=== PATIENT | female | born 1940 | race Caucasian/White ===

== ENCOUNTER 2016-08-24 11:15 | Observation (INO) ==
--- NOTE | 2016-08-24 11:49 | EKG Report ---
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
[2016-08-24] MEDS ORDERED: ENOXAPARIN 60 MG/0.6 ML SYRINGE SUBCUT STA (11:57)
[2016-08-24] MEDS ORDERED: ASPIRIN 325 MG TABLET PO STA ×2 (11:57→11:59)
[2016-08-24] MEDS ORDERED: ALUM/MAG/SIMETH/LIDO VISC 1:1 30 ML BOTTLE PO STA (11:57)
[2016-08-24] MEDS ORDERED: ENOXAPARIN 60 MG/0.6 ML SYRINGE ONE (12:00)
[2016-08-24] MEDS ORDERED: ASPIRIN 325 MG TABLET ONE (12:00)
[2016-08-24] MEDS ORDERED: ALUM/MAG/SIMETH/LIDO VISC 1:1 30 ML BOTTLE PO ONE (12:00)
[2016-08-24 12:17] LABS: Basophils % 1.5 % (0.0-0.8); Eosinophils % 0.4 % (0.00-10.9); Hematocrit 33.2 VOL% (35.7-47.0); Hemoglobin 11.5 GM/DL (12.0-16.0); Immature Granulocytes % 0.4 %; Immature Granulocytes Absolute 0.01 #; Lymphocytes # 0.8 10*3/uL (1.4-4.0); Lymphocytes % 31.6 % (21.3-54.2); Mean Corpuscular HGB Conc 34.6 GM/DL (32-36); Mean Corpuscular Hemoglobin 29 PG (27-34); Mean Corpuscular Volume 84.1 FL (87-102); Mean Platelet Volume 9.6 FL (9.6-12.0); Monocytes # 0.4 10*3/uL (0.11-0.8); Monocytes % 15.6 % (1.7-12.7); Neutrophils # 1.3 10*3/uL (1.4-7.4); Neutrophils % 50.5 % (38.7-73.9); Platelet Count 230 T/CUMM (130-400); Red Blood Count 3.95 MC/CUMM (3.8-5.5); Red Cell Distribution Width 16.5 % (9.3-17.3); White Blood Count 2.6 T/CUMM (4-12)
--- NOTE | 2016-08-24 12:29 | XRay Report ---
XR chest 2V Indication: Chest pain. Chest 2 views: Comparison 08/19/2015. Mediport catheter, tortuous calcified atheromatous disease of the aorta, median sternotomy wires, normal heart size and postoperative changes left mastectomy and axillary dissection noted. Multiple embolization coils are now present in the upper abdomen. No new infiltrates shown. Pleural spaces are clear. Osteopenia and degenerative changes thoracic spine are mild. Impression: No acute cardiopulmonary disease. Multiple chronic findings described above. PROCEDURE INTERPRETED AT [facility] DEPARTMENT OF RADIOLOGY Final Report Signed by: Harry Gallego M.D.
--- NOTE | 2016-08-24 12:36 | Emergency Department Note ---
IReza Meredith, am scribing for, and in the presence of, Fernandez Mejias MD 11: 59. IMagalie James D, MD, personally performed the services described in this documentation, ascribed by Lindsay Cobb in my presence, and it is both accurate and complete 234 . Arrival - Arrival Chief Complaint: Chest Pain Stated Complaint: hurting in chest and back ED Nursing Triage Note: Pt was sent over from [facility] office for c/o chest pain onset last night - pt is currently taking radiation for cancerous area to esophagus. Pt states that she did not get her radaition today was sent to ER for evaluation Mode of Arrival: Ambulatory Limitations: No Limitations Source: Patient, Old Records Reviewed, RN Notes Reviewed Time Seen by Provider: 08/24/16 11:53 - History of Present Illness HPI Narrative: Pt is a 75 y/o white female sent to the ED from Dr. Schafer's office with c/o chest pain which radiates into the back, onset last night. She thinks this is related to indigestion because she has had increased belching. Pt denies any nausea, vomiting, diaphoresis, or pain radiating down the arms. She is currently being treated for cancerous area of the esophagus. Pt did not get radiation today. She has a history of CAD, HTN, DVT, colon cancer, liver cancer , and breast cancer. Onset (ago): hour(s) Date of Last Menstrual Period: hyster Allergies/Adverse Reactions: Allergies Allergy/AdvReac Type Severity Reaction Status Date / Time No Known Allergies Allergy Verified 09/15/15 07:34 Home Medications: Home Medications Medication Instructions Recorded Confirmed Type hydroCHLOROthiazide 25 mg PO BEDTIME 12/08/15 08/24/16 History [Hydrochlorothiazide] Aspirin EC Tab 81 mg PO QPM 08/24/16 08/24/16 History Metoprolol Succinate Xl [Toprol Xl] 25 mg PO QPM 08/24/16 08/24/16 History Palbociclib [Ibrance] 125 mg PO QAM 08/24/16 08/24/16 History Valsartan 320 mg PO QPM 08/24/16 08/24/16 History amLODIPine [Norvasc] 5 mg PO QPM 08/24/16 08/24/16 History Review of System - Review of System 12 point system: reviewed and no additional remarkable complaints except as stated - Review of System Constitutional: Present: as per HPI. Absent: diaphoresis Cardiovascular: Present: as per HPI, chest pain Gastrointestinal: Present: as per HPI, other (increased belching). Absent: nausea, vomiting Musculoskeletal: Present: as per HPI. Absent: arm pain Medical,Surgical,& Family Hx - Medical History Cardio: History of: CAD, Hypertension, Cardiovascular Problems (DVT 11/2010) Neurology: No history of: Seizures HEENT: History of: Eye Problem (Glasses), Dental Problems Respiratory: Comment Only: Respiratory Problems (Flu Vac Apr 2015; No Pneum Vac) Gastrointestinal: History of: Liver Problems (Liver Mass 08/19/15 Liver Bx Confirmed Breast CA Mets Rt Lobe Liver), Gastrointestinal Cancer (Colon,Liver 2015;12/31/15 Sched for Radioembolization Liver Tumor), GI Problems (09/15/15 Sched for Chemo Embolization Rad Dr. Desai) Reproductive: History of: Breast Cancer (x2 07/2010 & 12/2012; Dr. Payan; Compleded 4 cycles of CMF 05/18/15) Other: History of: Cancer (Breast x2, Colon, Liver) No history of: Anesthesia Reactions - Surgical History Cardiac Surgeries: Sugical HX of: Cardiac Surgery (Open Heart Surgery at [facility]), Vascular Access Devices (Mediport) Abdominal Surgeries: Surgical HX of: Abdominal Surgery (Colectomy), Colonoscopy Reproductive Surgeries: Surgical HX of;: Breast Surgery (Lt MRM 02/2010; Rt Mastectom 02/06/14), Gynecologic Surgery, Hysterectomy Orthopedic Surgeries: Surgical HX of;: Implanted Devices (Mediport) - Family History Family History: Denies;: Additional Family History - Social History Smoking Status: Never smoker Frequency of Alcohol Use: None Type of Drug Use: None Exam Physical Examination: GENERAL: This is a well-nourished, well-developed white female in no apparent distress. VITAL SIGNS: Temperature: 98.1, Pulse: 87, Respirations: 20, Blood pressure: 164 /79, O2 Saturation: 99 HEENT: Head is normocephalic and atraumatic. Pupils are equally round and reactive to light. Extraocular movement are intact. Oropharynx is benign with moist mucous membranes. NECK: Neck is soft and supple without tenderness. There are no masses. There is no lymphadenopathy. LUNGS: Lungs are clear to auscultation bilaterally. Chest rises symmetrically. There is no chest wall tenderness. CV: Heart is regular rate and rhythm without murmurs, rubs, or gallops. ABDOMEN: Abdomen is soft, non-tender to palpation. There are no abnormal masses palpated. There is no organomegaly. Bowel sounds are present and active. SKIN: Skin is warm and dry. No rash. EXTREMITIES: Patient has full range of motion without tenderness. There is no pedal edema. NEUROLOGIC: Awake, alert, and oriented x4. Cranial nerves II through XII are grossly intact. There are no motorsensory deficits. PSYCHIATRIC: Normal affect. Normal mood. Vital Signs: Vital Signs Temperature 98.1 F 08/24/16 11:45 Pulse Rate 76 08/24/16 12:15 Respiratory Rate 24 08/24/16 12:15 Blood Pressure 183/70 08/24/16 12:15 O2 Sat by Pulse Oximetry 100 08/24/16 12:15 Course - Consultations Consultation #1: Discussed with Dr. Payan. Patient will be admitted to his service. Time: 13:07 Results - Labs CBC & BMP: 08/24/16 11:50 08/24/16 11:50 Lab Results: I have reviewed the patients labs Labs: Laboratory Tests 08/24/16 08/24/16 08/24/16 11:50 11:50 11:50 WBC 2.6 L RBC 3.95 Hgb 11.5 L Hct 33.2 L MCV 84.1 L Plt Count 230 Cochran % (Auto) 15.6 H Baso % (Auto) 1.5 H Neut # (Auto) 1.3 L Lymph # (Auto) 0.8 L Sodium 145 Potassium 3.9 Chloride 108 H Carbon Dioxide 26 BUN 13 Creatinine 0.80 Alkaline Phosphatase 41 L Troponin I < 0.015 - EKG EKG results: interpreted by ERMD - Impressions EKG: Normal sinus rhythm with a rate of 80, incomplete right bundle branch block , nonspecific ST-T wave changes. - Diagnostic Findings Procedure: Chest x-ray: report reviewed by me (No acute cardiopulmonary disease. Multiple chronic findings described above. ) Disposition Clinical Impression: Chest pain, Lung cancer, Coronary artery disease Case discussed with: patient Disposition: Still a Patient Condition: Stable Time of Disposition: 13:06
[2016-08-24 12:53] LABS: Albumin 3.8 G/DL (3.4-5.0); Bilirubin,Total 0.4 MG/DL (0.2-1.0); Calcium 8.9 MG/DL (8.5-10.1); Eosinophils 2 % (0-10); Hypochromasia 1+; Lymphocytes 28 % (20-55); Magnesium 2.1 MG/DL (1.8-2.4); Osmolality,Calculated 287.7 MOS/KG (273-304); Potassium 3.9 MMOL/L (3.5-5.1); Segmented Neutrophils 60 % (50-85); Total Cells Counted 100; Total Protein 6.6 G/DL (6.4-8.3)
[2016-08-24 12:54] LABS: Microcytosis 1+; Ovalocytes Few; Platelet Estimate Adequate
[2016-08-24] MEDS ORDERED: diphenhydrAMINE CAP 25 MG CAPSULE PO PRN (14:19)
[2016-08-24] MEDS ORDERED: LACTULOSE 20 GM/30 ML UDCUP PO PRN (14:19)
[2016-08-24] MEDS ORDERED: ALUMINUM/MAGNES/SIMETH MAX STR 30 ML UDCUP PO PRN (14:19)
[2016-08-24] MEDS ORDERED: traMADol 50 MG TABLET PO PRN (14:19)
[2016-08-24] MEDS ORDERED: ACETAMINOPHEN 325 MG TABLET PO PRN (14:19)
[2016-08-24] MEDS ORDERED: TEMAZEPAM 7.5 MG CAPSULE PO PRN (14:19)
[2016-08-24] MEDS ORDERED: MYLANTA/LIDO VISC 2:1 300 ML BOTTLE SWISH/SPIT PRN (14:19)
[2016-08-24] MEDS ORDERED: ONDANSETRON 4 MG/2 ML VIAL IV PRN (14:19)
[2016-08-24] MEDS ORDERED: chlorproMAZINE 25 MG TABLET PO PRN (14:19)
[2016-08-24] MEDS ORDERED: MAGNESIUM HYDROXIDE SUSP 30 ML UDCUP PO PRN (14:19)
[2016-08-24] MEDS ORDERED: guaiFENesin 200 MG/10 ML UDCUP PO PRN (14:19)
[2016-08-24] MEDS ORDERED: ALPRAZolam 0.25 MG TABLET PO PRN (14:19)
[2016-08-24] MEDS ORDERED: PROMETHAZINE INJ 25 MG in SODIUM CHLORIDE 0.9% 50 ML IV PRN (14:19)
[2016-08-24] MEDS ORDERED: BENZTROPINE 2 MG/2 ML AMP IV PRN (14:19)
[2016-08-24] MEDS ORDERED: MYLANTA/LIDO VISC 2:1 300 ML BOTTLE SWISH/SWAL PRN (14:19)
[2016-08-24] MEDS ORDERED: chlorproMAZINE INJ 25 MG in SODIUM CHLORIDE 0.9% 100 ML IV PRN (14:19)
[2016-08-24] MEDS ORDERED: chlorproMAZINE INJ 50 MG in SODIUM CHLORIDE 0.9% 100 ML IV PRN (14:19)
[2016-08-24] MEDS ORDERED: LOPERAMIDE 2 MG CAPSULE PO PRN ×2 (14:19)
[2016-08-24] MEDS ORDERED: ENOXAPARIN 40 MG/0.4 ML SYRINGE SUBCUT SCH (14:19)
[2016-08-24] MEDS: HEPARIN LOCK FLUSH 500 UNIT/5 ML SYRINGE IV SCH (15:00)
--- NOTE | 2016-08-24 15:12 | EKG Report ---
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
[2016-08-24 15:15] LABS: Basophils # 0.1 10*3/uL (0.0-0.2); Basophils % 1.7 % (0.0-0.8); Eosinophils % 0.3 % (0.00-10.9); Hematocrit 33.7 VOL% (35.7-47.0); Hemoglobin 11.3 GM/DL (12.0-16.0); Immature Granulocytes % 0.3 %; Immature Granulocytes Absolute 0.01 #; Lymphocytes # 1.1 10*3/uL (1.4-4.0); Lymphocytes % 39.2 % (21.3-54.2); Mean Corpuscular HGB Conc 33.5 GM/DL (32-36); Mean Corpuscular Hemoglobin 29 PG (27-34); Mean Corpuscular Volume 85.3 FL (87-102); Mean Platelet Volume 9.7 FL (9.6-12.0); Monocytes # 0.3 10*3/uL (0.11-0.8); Monocytes % 11.3 % (1.7-12.7); Neutrophils # 1.4 10*3/uL (1.4-7.4); Neutrophils % 47.2 % (38.7-73.9); Platelet Count 209 T/CUMM (130-400); Red Blood Count 3.95 MC/CUMM (3.8-5.5); Red Cell Distribution Width 16.5 % (9.3-17.3); White Blood Count 2.9 T/CUMM (4-12)
[2016-08-24 15:59] LABS: Albumin 3.6 G/DL (3.4-5.0); Bilirubin,Total 0.4 MG/DL (0.2-1.0); Calcium 8.5 MG/DL (8.5-10.1); Magnesium 2.1 MG/DL (1.8-2.4); Potassium 3.7 MMOL/L (3.5-5.1); Total Protein 6.5 G/DL (6.4-8.3); Uric Acid 5.3 MG/DL (2.6-6.0)
[2016-08-24 18:00] LABS: Lymphocytes 36 % (20-55); Platelet Estimate Normal; Segmented Neutrophils 61 % (50-85); Total Cells Counted 100
[2016-08-24 18:30] LABS: Apearance,Urine CLEAR (Clear); Bacteria,Urine Occasional /HPF (Few); Bilirubin,Urine Negative (Negative); Blood, Urine Negative (Negative); Glucose,Urine (UA) Negative (Negative); Ketones,Urine Negative (Negative); Nitrite,Urine Negative (Negative); Protein,Urine Negative; RBC,Urine <1 /HPF (0-4); Squamous Epithelial Cell,Urine Occasional /HPF (0-10); Urine Color Straw (Yellow); Urine Specific Gravity 1.008 (1.001-1.035); Urine Urobilinogen < 2.0 EU/DL (0.2-1.0); WBC,Urine 1 /HPF (0-6)
[2016-08-25] MEDS: HEPARIN LOCK FLUSH 500 UNIT/5 ML SYRINGE IV SCH ×2 (05:02→15:55)
--- NOTE | 2016-08-25 08:41 | Oncology History&Physical ---
Assessment and Plan (1) Substernal precordial chest pain Status: Acute Assessment and plan: Her troponins have been negative 3 now. From my standpoint we can discharge her home, but I would like cardiology to see her first to see if they would like to do any type of further evaluation while she is in the hospital. If they do not want any type of further evaluation, we will discharge her home later today. She needs to follow-up with radiation next week. She will keep her follow-up appointment with me in clinic in 2 weeks. Current Visit: No (2) History of coronary artery bypass graft x 3 Status: Acute Current Visit: No (3) Breast cancer metastasized to liver Problem details: chronic, recurrent with treatment including TACE in August 2015 and TARE completed 12/31/15 Status: Acute Current Visit: No (4) Coronary artery disease Status: Acute Current Visit: Yes History of Present Illness History of present illness: Ms. Alejandro is a 75 year old female with metastatic breast cancer involving her liver and lymph nodes of her chest. She has a history of coronary artery disease and underwent a CABG a few years ago. Her most recent cardiac history was after yttrium-90 treatment to her liver a few months ago. Shortly after the procedure she developed chest pain and had some questionable EKG changes. Dr. Schumacher with cardiology evaluated her and felt like the chest pain was atypical and more related to her procedure. Her troponins never increased at that time that I can recall. She presented to the ER yesterday complaining of left-sided chest pain that radiated to her arm. I started the night before. She denies any shortness of breath or back pain with the pain. She is currently receiving radiation to 2 separate cancer spots in her chest. I am managing her with oral chemotherapy and antiestrogen injections. She is admitted to my service for rule out of myocardial infarction and cardiology evaluation. Unfortunately, the ER did not place a consult to cardiology yesterday so she has yet to be seen by them. I have asked them to see her today. Home Medications Medication Instructions Recorded Confirmed Type hydroCHLOROthiazide 25 mg PO BEDTIME 12/08/15 08/24/16 History [Hydrochlorothiazide] Aspirin EC Tab 81 mg PO QPM 08/24/16 08/24/16 History Metoprolol Succinate Xl [Toprol Xl] 25 mg PO QPM 08/24/16 08/24/16 History Palbociclib [Ibrance] 125 mg PO QAM 08/24/16 08/24/16 History Valsartan 320 mg PO QPM 08/24/16 08/24/16 History amLODIPine [Norvasc] 5 mg PO QPM 08/24/16 08/24/16 History Allergies Allergy/AdvReac Type Severity Reaction Status Date / Time No Known Allergies Allergy Verified 09/15/15 07:34 Medical,Surgical,& Family Hx - Medical History Cardio: History of: CAD, Hypertension, Cardiovascular Problems (DVT 11/2010) Neurology: History of: Cerebrovascular Accident (2015) No history of: Seizures HEENT: History of: Eye Problem (Glasses), Dental Problems Respiratory: Comment Only: Respiratory Problems (Flu Vac Apr 2015; No Pneum Vac) Gastrointestinal: History of: Liver Problems (Liver Mass 08/19/15 Liver Bx Confirmed Breast CA Mets Rt Lobe Liver), Gastrointestinal Cancer (Colon,Liver 2015;12/31/15 Sched for Radioembolization Liver Tumor), GI Problems (09/15/15 Sched for Chemo Embolization Rad Dr. Desai) Reproductive: History of: Breast Cancer (x2 07/2010 & 12/2012; Dr. Payan; Compleded 4 cycles of CMF 05/18/15) Other: History of: Cancer (Breast x2, Colon, Liver) No history of: Anesthesia Reactions - Surgical History Cardiac Surgeries: Sugical HX of: Cardiac Surgery (Open Heart Surgery at [facility]), Vascular Access Devices (Mediport) Abdominal Surgeries: Surgical HX of: Abdominal Surgery (Colectomy), Colonoscopy Reproductive Surgeries: Surgical HX of;: Breast Surgery (Lt MRM 02/2010; Rt Mastectom 02/06/14), Gynecologic Surgery, Hysterectomy Orthopedic Surgeries: Surgical HX of;: Implanted Devices (Mediport) - Family History Family History: Reports;: Family Cancer, Family Heart Disease, Family Hypertension Denies;: Additional Family History - Social History Smoking Status: Never smoker Frequency of Alcohol Use: None Type of Drug Use: None 12 point system: reviewed and no additional remarkable complaints except as stated - Cardiovascular Cardiovascular ROS IM: Present: chest pain. Absent: edema, palpitations - Respiratory Respiratory: Absent: cough, dyspnea Exam - Constitutional Vitals: Period Temp Pulse Resp BP Sys/Davis Pulse Ox Last 24 Hr 97.4 F-98 F 71-91 15-20 132-206/63-94 92-100 General appearance: normal weight, no acute distress - Head Head Exam: Present: normocephalic, atraumatic - Eye Eye Exam: Present: EOMI Pupils: Present: PERRL - ENT ENT exam: Present: normal exam, normal oropharynx - Neck Neck exam: Absent: lymphadenopathy, thyromegaly - Respiratory Respiratory exam: Present: CTAB. Absent: wheezes - Cardiovascular Cardiovascular exam: Present: RRR. Absent: JVD - GI/Abdominal GI/Abdominal exam: Present: soft. Absent: ascites, distended, mass - Neurological Exam Neurological exam: Present: alert, oriented X3 - Psychiatric Psychiatric exam: Present: normal affect, normal mood - Skin Skin exam: Present: warm, dry Results - Labs CBC & BMP: 08/24/16 15:09 08/24/16 15:09 Lab Results: I have reviewed the past 24 hour labs
[2016-08-25] MEDS ORDERED: ENOXAPARIN 40 MG/0.4 ML SYRINGE SUBCUT SCH (09:00)
--- NOTE | 2016-08-25 09:44 | Cardiology Consult Note ---
<Antonia Carmona - Last Filed: 08/25/16 12:34> Assessment and Plan - Time spent with patient Time spent with patient: Greater than 30 minutes (1) Chest pain Status: Acute Assessment and plan: Patient is currently chest pain-free. Troponin has been negative 3. EKG is unchanged from previous EKGs. This does not seem to be cardiac in nature. I have added PPI. After further discussing with Dr. Schumacher, patient is stable for discharge from a cardiology's standpoint. Patient will follow up with Dr. Schumacher in 1 month. Current Visit: Yes (2) Coronary artery disease Status: Chronic Current Visit: Yes (3) Breast cancer metastasized to liver Problem details: chronic, recurrent with treatment including TACE in August 2015 and TARE completed 12/31/15 Status: Chronic Assessment and plan: Followed by Dr. Payan. She is currently receiving radiation treatments for this. Current Visit: No (4) History of coronary artery bypass graft x 3 Status: Chronic Assessment and plan: CABG approximately 10 years ago with vein graft to RCA, vein graft to circumflex and HUNTER graft to LAD. All 3 grafts were patent without evidence of significant flow-limiting stenosis during patient's most recent heart catheterization December 2015. Current Visit: No (5) Non-ST elevation myocardial infarction (NSTEMI) Status: Resolved Assessment and plan: Patient had a heart catheterization by Dr. Schumacher December 2015 after presenting with non-ST elevation RI after having interventional radiology procedure. At that time, 3 out of 3 grafts were patent without evidence of significant flow- limiting stenosis with some collateralization from the distal right to the septal perforators of the proximal LAD. She had normal left ventricular size and function. At that time, she was treated medically. Current Visit: No (6) Hypertension Status: Chronic Current Visit: Yes History of Present Illness - Data of Consult Patient: known to practice within the last 3 years Consult date: 08/25/16 Requesting Physician: Rodney Payan - Consult Narrative Reason for consult: chest pain History of present illness: Ms. Alejandro is a 75 year old female patient with with a previous history coronary artery disease, routinely followed by Dr. Schumacher. Her primary care provider is Dr. Schafer. Patient presented to the ER yesterday with complaints of chest pain. Patient has cardiac risk factors significant for known history of CAD, hypertension, advanced age and family history of CAD ( mother from [place] at age 85). Patient is a non-smoker. She has a past medical history of metastatic breast cancer involving her liver and lymph nodes (she is currently receiving radiation at this time), non-ST elevation RI, CABG with vein graft to RCA, vein graft to circumflex and HUNTER graft to LAD, malignant neoplasm of colon, and ascending aortic dissection. Patient had a heart catheterization by Dr. Schumacher December 2015 after presenting with non-ST elevation RI after having interventional radiology procedure. At that time, 3 out of 3 grafts were patent without evidence of significant flow-limiting stenosis with some collateralization from the distal right to the septal perforators of the proximal LAD. She had normal left ventricular size and function. At that time, she was treated medically. She last saw Dr. Schumacher in the office over the 2016. Patient was in her usual state of health until Sunday night when she began to experience left-sided chest pain while watching TV. She describes this pain as a sharp pain that radiates to her back. Patient rates her pain a 6 out of 10. Her pain was not associated with nausea, vomiting, shortness of breath or diaphoresis. Unable to identify aggravating factors. Her pain was not worsened with exertion or activity. She does tell me that her chest pain was made slightly better after belching. Unrelieved with Rolaids. She reports dysphagia was associated with her chest pain. Her pain then went away on its own. She never took a nitroglycerin. Her chest pain lasted approximately 3 hours. When she woke up the next morning she was no longer experiencing chest pain. She had an appointment already scheduled with Dr. Schafer that day. She reported her symptoms to Dr. Schafer during her visit. At that time, he recommended that she reports to the ER for further evaluation. Patient was admitted under Dr. Payan's service and housed on the telemetry floor. Cardiology has been consulted to further evaluate patient's chest pain. Of note, patient denies fever, chills, cough, abdominal pain, nausea, vomiting, diarrhea, melena, orthopnea, PND and lower extremity swelling. She also denies dyspnea on exertion and/or worsening exercise intolerance. Echocardiogram December 2015 revealed an ejection fraction of 60%. Mild MR, aortic sclerosis and moderate to severe TR. Normal LV size, systolic wall function and wall thickness. She was seen and examined on telemetry. She is currently chest pain free. She reports that she has not experienced any further chest pain since being admitted to the hospital yesterday. Her troponins have been negative 3. EKG reveals ST segment and T-wave abnormality. This is unchanged from previous EKG. Pain is not reproducible with palpation. I will add a PPI at this time and will discuss this further with Dr. Schumacher. Further plan and addendum to follow. CC: Rodney Payan MD - Home Medications and Allergies Home Medications: Home Medications Medication Instructions Recorded Confirmed Type hydroCHLOROthiazide 25 mg PO BEDTIME 12/08/15 08/24/16 History [Hydrochlorothiazide] Aspirin EC Tab 81 mg PO QPM 08/24/16 08/24/16 History Metoprolol Succinate Xl [Toprol Xl] 25 mg PO QPM 08/24/16 08/24/16 History Palbociclib [Ibrance] 125 mg PO QAM 08/24/16 08/24/16 History Valsartan 320 mg PO QPM 08/24/16 08/24/16 History amLODIPine [Norvasc] 5 mg PO QPM 08/24/16 08/24/16 History Allergies/Adverse Reactions: Allergies Allergy/AdvReac Type Severity Reaction Status Date / Time No Known Allergies Allergy Verified 09/15/15 07:34 - Constitutional Constitutional: Absent: chills, fatigue, fever(s), frequent falls, headache(s), malaise, weakness, weight gain, weight loss - Cardiovascular Cardiovascular: Present: chest pain at rest, radiating jaw, neck or arm pain. Absent: chest pain with activity, claudication, diaphoresis, dyspnea, dyspnea on exertion, edema, lightheadedness, orthopnea, palpitations, PND - Respiratory Respiratory: Present: pain on inspiration. Absent: cough, dyspnea, hemoptysis, dyspnea on exertion, wheezing, snoring, change in phlegm color - Gastrointestinal Gastrointestinal: Present: dysphagia, other (Belching). Absent: abdominal pain , change in bowel habits, coffee ground emesis, constipation, cramping, diarrhea , hematemesis, hematochezia, loose stools, melena, nausea, vomiting - Neurological Neurological: Absent: abnormal gait, abnormal speech, behavioral changes, dizziness, frequent falls, headache(s), syncope Medical,Surgical,& Family Hx - Medical History Cardio: History of: CAD, Hypertension, RI, Cardiovascular Problems (previous history of DVT in 2010) Neurology: History of: Cerebrovascular Accident (2015) No history of: Seizures HEENT: History of: Eye Problem (Glasses), Dental Problems Respiratory: Comment Only: Respiratory Problems (Flu Vac Apr 2015; No Pneum Vac) Gastrointestinal: History of: Liver Problems (Liver Mass 08/19/15 Liver Bx Confirmed Breast CA Mets Rt Lobe Liver), Gastrointestinal Cancer (Colon,Liver 2015;12/31/15 Sched for Radioembolization Liver Tumor), GI Problems (09/15/15 Sched for Chemo Embolization Rad Dr. Desai) Reproductive: History of: Breast Cancer (x2 07/2010 & 12/2012; Dr. Payan; Compleded 4 cycles of CMF 05/18/15) Other: History of: Cancer (Breast x2, Colon, Liver) No history of: Anesthesia Reactions - Surgical History Cardiac Surgeries: Sugical HX of: Cardiac Catheterization, Cardiac Surgery (CABG ), Vascular Access Devices (Mediport) Abdominal Surgeries: Surgical HX of: Abdominal Surgery (Colectomy), Colonoscopy Reproductive Surgeries: Surgical HX of;: Breast Surgery (Lt MRM 02/2010; Rt Mastectom 02/06/14), Gynecologic Surgery, Hysterectomy Orthopedic Surgeries: Surgical HX of;: Implanted Devices (Mediport) - Family History Family History: Reports;: Family Cancer, Family Heart Disease, Family Hypertension Denies;: Additional Family History - Social History Smoking Status: Never smoker Frequency of Alcohol Use: None Type of Drug Use: None Physical Examination Vital Signs Temp Pulse Resp BP Pulse Ox 98.1 F 87 20 164/79 99 08/24/16 11:27 08/24/16 11:27 08/24/16 11:27 08/24/16 11:27 08/24/16 11:27 General: Present: Appears Well, No Apparent Distress HEENT: Present: Normocephaly Neck: Present: Supple Neck, Midline Trachea, No JVD/HJR, No Masses, No Bruit Cardiac: Present: Reg Rate and Rhythm, Regular Rate, Regular Rhythm, S1/S2, Systolic Murmur. Absent: Gallop Lungs: Present: Normal Exam, Clear Ascult./Percussion, Normal Breath Sounds, No Wheeze, Rales, Rhonchi. Absent: Oxygen Abdomen: Present: Soft, Active Bowel Sounds, Non-Tender Skin: Present: Clear. Absent: Rash, Suspicious Lesions, Ulceration Gait: Present: Normal Gait Extremities: Present: Normal Gait, No Clubbing, No Cyanosis, No Edema, Normal Upper Extr. Pulses, Normal Lower Extr. Pulses Result/EKG - Labs CBC & BMP: 08/24/16 15:09 08/24/16 15:09 Lab Results: I have reviewed the past 24 hour labs Labs: Laboratory Results - last 24 hr 08/24/16 08/24/16 08/24/16 15:09 15:09 15:09 WBC 2.9 L RBC 3.95 Hgb 11.3 L Hct 33.7 L MCV 85.3 L MCH 29 MCHC 33.5 RDW 16.5 Plt Count 209 MPV 9.7 Neut % (Auto) 47.2 Lymph % (Auto) 39.2 [place] % (Auto) 11.3 Eos % (Auto) 0.3 Baso % (Auto) 1.7 H Neut # (Auto) 1.4 Lymph # (Auto) 1.1 L [place] # (Auto) 0.3 Eos # (Auto) 0.0 Baso # (Auto) 0.1 Total Counted 100 Immature Gran % 0.3 Nucleated RBC % 0.0 Immature Gran # 0.01 Segmented Neutrophils 61 Lymphocytes 36 Monocytes 3 Nucleated RBCs # 0.00 Platelet Estimate Normal Sodium 143 Potassium 3.7 Chloride 105 Carbon Dioxide 29 Anion Gap 12.7 BUN 12 Creatinine 0.70 GFR Calculation 85 BUN/Creatinine Ratio 17.00 Glucose 83 Calculated Osmolality 283.0 Uric Acid 5.3 Calcium 8.5 Magnesium 2.1 Total Bilirubin 0.40 AST 19 ALT 21 Alkaline Phosphatase 41 L Lactate Dehydrogenase 159 Troponin I < 0.015 Total Protein 6.5 Albumin 3.6 Globulin 2.9 Albumin/Globulin Ratio 1.2 Urine Color Urine Appearance Urine pH Ur Specific [place] Urine Protein Urine Glucose (UA) Urine Ketones Urine Blood Urine Nitrate Urine Bilirubin Urine Urobilinogen Urine Leukocytes Urine RBC Urine WBC Ur Squamous Epith Cells Urine Bacteria Ur Culture Indicated? 08/24/16 08/24/16 18:41 Unknown WBC RBC Hgb Hct MCV MCH MCHC RDW Plt Count MPV Neut % (Auto) Lymph % (Auto) [place] % (Auto) Eos % (Auto) Baso % (Auto) Neut # (Auto) Lymph # (Auto) [place] # (Auto) Eos # (Auto) Baso # (Auto) Total Counted Immature Gran % Nucleated RBC % Immature Gran # Segmented Neutrophils Lymphocytes Monocytes Nucleated RBCs # Platelet Estimate Sodium Potassium Chloride Carbon Dioxide Anion Gap BUN Creatinine GFR Calculation BUN/Creatinine Ratio Glucose Calculated Osmolality Uric Acid Calcium Magnesium Total Bilirubin AST ALT Alkaline Phosphatase Lactate Dehydrogenase Troponin I < 0.015 Total Protein Albumin Globulin Albumin/Globulin Ratio Urine Color Straw Urine Appearance Clear Urine pH 7.0 Ur Specific [place] 1.008 Urine Protein Negative Urine Glucose (UA) Negative Urine Ketones Negative Urine Blood Negative Urine Nitrate Negative Urine Bilirubin Negative Urine Urobilinogen < 2.0 H Urine Leukocytes Negative Urine RBC <1 Urine WBC 1 Ur Squamous Epith Cells Occasional Urine Bacteria Occasional Ur Culture Indicated? Not indicated Specialty Discharge - Follow Up or Referrals Follow up with: Leopoldo Schumacher MD [Physician] - 1 Month (Please make appointment with Dr. Schumacher in 1 month with EKG, CBC, BMP and magnesium.) <Leopoldo Schumacher - Last Filed: 08/25/16 13:23> History of Present Illness - Consult Narrative History of present illness: Ms. Alejandro is a 75 year old female who is well known to me. She had catheterization about 9 months ago when she presented with a non-ST elevation myocardial infarction. This occurred around the time that she had embolization of a liver tumor and I think they were in some way related as there was inflammation which I think was the etiology of her elevated troponin. She did not have significant occlusive coronary disease approachable by PCI and has been stable since discharge. She is now presented with chest discomfort which is atypical and noncardiac by my history she has negative enzymes and EKGs and I think is reasonable for her to be discharged home. I will see her in follow- up in 1 month. She does have a murmur consistent with aortic stenosis noted. I have discussed in detail the particulars of this case and I have examined the patient and reviewed the patient's chart both current and old. I was directly involved in the patient's evaluation and management and I completely agree with Antonia Carmona NP regarding this patient's evaluation and treatment plan. CC: Rodney Payan MD Physical Examination Vital Signs Temp Pulse Resp BP Pulse Ox 98.1 F 87 20 164/79 99 08/24/16 11:27 08/24/16 11:27 08/24/16 11:27 08/24/16 11:27 08/24/16 11:27 Result/EKG - Labs CBC & BMP: 08/24/16 15:09 08/24/16 15:09 Labs: Laboratory Results - last 24 hr 08/24/16 08/24/16 08/24/16 15:09 15:09 15:09 WBC 2.9 L RBC 3.95 Hgb 11.3 L Hct 33.7 L MCV 85.3 L MCH 29 MCHC 33.5 RDW 16.5 Plt Count 209 MPV 9.7 Neut % (Auto) 47.2 Lymph % (Auto) 39.2 [place] % (Auto) 11.3 Eos % (Auto) 0.3 Baso % (Auto) 1.7 H Neut # (Auto) 1.4 Lymph # (Auto) 1.1 L [place] # (Auto) 0.3 Eos # (Auto) 0.0 Baso # (Auto) 0.1 Total Counted 100 Immature Gran % 0.3 Nucleated RBC % 0.0 Immature Gran # 0.01 Segmented Neutrophils 61 Lymphocytes 36 Monocytes 3 Nucleated RBCs # 0.00 Platelet Estimate Normal Sodium 143 Potassium 3.7 Chloride 105 Carbon Dioxide 29 Anion Gap 12.7 BUN 12 Creatinine 0.70 GFR Calculation 85 BUN/Creatinine Ratio 17.00 Glucose 83 Calculated Osmolality 283.0 Uric Acid 5.3 Calcium 8.5 Magnesium 2.1 Total Bilirubin 0.40 AST 19 ALT 21 Alkaline Phosphatase 41 L Lactate Dehydrogenase 159 Troponin I < 0.015 Total Protein 6.5 Albumin 3.6 Globulin 2.9 Albumin/Globulin Ratio 1.2 Urine Color Urine Appearance Urine pH Ur Specific [place] Urine Protein Urine Glucose (UA) Urine Ketones Urine Blood Urine Nitrate Urine Bilirubin Urine Urobilinogen Urine Leukocytes Urine RBC Urine WBC Ur Squamous Epith Cells Urine Bacteria Ur Culture Indicated? 08/24/16 08/24/16 18:41 Unknown WBC RBC Hgb Hct MCV MCH MCHC RDW Plt Count MPV Neut % (Auto) Lymph % (Auto) [place] % (Auto) Eos % (Auto) Baso % (Auto) Neut # (Auto) Lymph # (Auto) [place] # (Auto) Eos # (Auto) Baso # (Auto) Total Counted Immature Gran % Nucleated RBC % Immature Gran # Segmented Neutrophils Lymphocytes Monocytes Nucleated RBCs # Platelet Estimate Sodium Potassium Chloride Carbon Dioxide Anion Gap BUN Creatinine GFR Calculation BUN/Creatinine Ratio Glucose Calculated Osmolality Uric Acid Calcium Magnesium Total Bilirubin AST ALT Alkaline Phosphatase Lactate Dehydrogenase Troponin I < 0.015 Total Protein Albumin Globulin Albumin/Globulin Ratio Urine Color Straw Urine Appearance Clear Urine pH 7.0 Ur Specific [place] 1.008 Urine Protein Negative Urine Glucose (UA) Negative Urine Ketones Negative Urine Blood Negative Urine Nitrate Negative Urine Bilirubin Negative Urine Urobilinogen < 2.0 H Urine Leukocytes Negative Urine RBC <1 Urine WBC 1 Ur Squamous Epith Cells Occasional Urine Bacteria Occasional Ur Culture Indicated? Not indicated
--- NOTE | 2016-08-25 11:12 | Ultrasound Report ---
Indication: Chest pain Duplex scan of the bilateral lower extremity veins Technique: Duplex scan of the bilateral lower extremity veins using B-mode/grayscale imaging and Doppler spectral analysis and color flow Findings: Major venous structures of the bilateral lower extremity demonstrate a normal course and caliber. There is no evidence of deep vein thrombosis. No abnormal intrinsic echogenic lesions are demonstrated in the scanned blood vessels. Veins demonstrate good compressibility with normal color flow study and spectral analysis. Impression: Unremarkable duplex imaging of the bilateral lower extremity veins. No evidence of DVT PROCEDURE INTERPRETED AT [facility] DEPARTMENT OF RADIOLOGY Final Report Signed by: Robert Desai
[2016-08-25] MEDS ORDERED: PANTOPRAZOLE 40 MG TABLET PO SCH (11:30)
[2016-08-25 11:54] VITALS: BP 154/69
--- NOTE | 2016-08-25 13:55 | Discharge Summary ---
Hospital Course - Hospital Course Hospital Course: See H&P done earlier today. Pt admitted with atypical chest pain. Troponins were negative. No plans for catherization or nuclear testing for now. Will d/c home. 1. Follow with Cardiology 2. Keep appts with me and Radiation Oncology Diagnosis - Discharge Diagnosis (1) Substernal precordial chest pain Status: Acute (2) History of coronary artery bypass graft x 3 Status: Chronic (3) Breast cancer metastasized to liver Status: Chronic (4) Coronary artery disease Status: Chronic Specialty Discharge - Follow Up or Referrals Follow up with: Leopoldo Schumacher MD [Physician] - 1 Month (Please make appointment with Dr. Schumacher in 1 month with EKG, CBC, BMP and magnesium.) Discharge Plan - Discharge Data Disposition: Disch To Home/Self Care Condition at Discharge: Stable Discharge Diet: advance to your usual diet Activity: resume usual activities as tolerated Hygiene: no restrictions Weight Bearing at Discharge: full weight bearing Driving: no restrictions - Discharge Medications Continue hydroCHLOROthiazide [Hydrochlorothiazide] 25 mg PO BEDTIME amLODIPine [Norvasc] 5 mg PO QPM Valsartan 320 mg PO QPM Metoprolol Succinate Xl [Toprol Xl] 25 mg PO QPM Palbociclib [Ibrance] 125 mg PO QAM Aspirin EC Tab 81 mg PO QPM - Follow Up or Referral Follow Up: Leopoldo Schumacher MD [Physician] - 1 Month (Please make appointment with Dr. Schumacher in 1 month with EKG, CBC, BMP and magnesium.) - Forms/Instructions Exam - Constitutional Vitals: Period Temp Pulse Resp BP Sys/Davis Pulse Ox Last 24 Hr 97.4 F-98.0 F 71-91 16-20 132-206/63-94 92-98 Discharge Results Procedures and tests throughout hospitalization: Pending Orders 08/25/16 11:31 US venous doppler LE BI Routine Labs on day of discharge: Labs from last 24 hours 08/24/16 08/24/16 08/24/16 Unknown 18:41 15:09 WBC RBC Hgb Hct MCV MCH MCHC RDW Plt Count MPV Neut % (Auto) Lymph % (Auto) [place] % (Auto) Eos % (Auto) Baso % (Auto) Neut # (Auto) Lymph # (Auto) [place] # (Auto) Eos # (Auto) Baso # (Auto) Total Counted Immature Gran % Nucleated RBC % Immature Gran # Segmented Neutrophils Lymphocytes Monocytes Nucleated RBCs # Platelet Estimate Sodium 143 Potassium 3.7 Chloride 105 Carbon Dioxide 29 Anion Gap 12.7 BUN 12 Creatinine 0.70 GFR Calculation 85 BUN/Creatinine Ratio 17.00 Glucose 83 Calculated Osmolality 283.0 Uric Acid 5.3 Calcium 8.5 Magnesium 2.1 Total Bilirubin 0.40 AST 19 ALT 21 Alkaline Phosphatase 41 L Lactate Dehydrogenase 159 Troponin I < 0.015 Total Protein 6.5 Albumin 3.6 Globulin 2.9 Albumin/Globulin Ratio 1.2 Urine Color Straw Urine Appearance Clear Urine pH 7.0 Ur Specific [place] 1.008 Urine Protein Negative Urine Glucose (UA) Negative Urine Ketones Negative Urine Blood Negative Urine Nitrate Negative Urine Bilirubin Negative Urine Urobilinogen < 2.0 H Urine Leukocytes Negative Urine RBC <1 Urine WBC 1 Ur Squamous Epith Cells Occasional Urine Bacteria Occasional Ur Culture Indicated? Not indicated 08/24/16 08/24/16 15:09 15:09 WBC 2.9 L RBC 3.95 Hgb 11.3 L Hct 33.7 L MCV 85.3 L MCH 29 MCHC 33.5 RDW 16.5 Plt Count 209 MPV 9.7 Neut % (Auto) 47.2 Lymph % (Auto) 39.2 [place] % (Auto) 11.3 Eos % (Auto) 0.3 Baso % (Auto) 1.7 H Neut # (Auto) 1.4 Lymph # (Auto) 1.1 L [place] # (Auto) 0.3 Eos # (Auto) 0.0 Baso # (Auto) 0.1 Total Counted 100 Immature Gran % 0.3 Nucleated RBC % 0.0 Immature Gran # 0.01 Segmented Neutrophils 61 Lymphocytes 36 Monocytes 3 Nucleated RBCs # 0.00 Platelet Estimate Normal Sodium Potassium Chloride Carbon Dioxide Anion Gap BUN Creatinine GFR Calculation BUN/Creatinine Ratio Glucose Calculated Osmolality Uric Acid Calcium Magnesium Total Bilirubin AST ALT Alkaline Phosphatase Lactate Dehydrogenase Troponin I < 0.015 Total Protein Albumin Globulin Albumin/Globulin Ratio Urine Color Urine Appearance Urine pH Ur Specific [place] Urine Protein Urine Glucose (UA) Urine Ketones Urine Blood Urine Nitrate Urine Bilirubin Urine Urobilinogen Urine Leukocytes Urine RBC Urine WBC Ur Squamous Epith Cells Urine Bacteria Ur Culture Indicated? DS: Provider Date of admission: 08/24/16 13:11 Primary care physician: Michelle Lynch, Attending physician on admission: Rodney Payan MD Consults: 08/24/16 14:45 Consult to Pharmacy [CONS] Routine Reason for Pharmacy Consult: Adjust Meds Renal Funct 08/25/16 07:47 Consult to Physician [CONS] Routine Comment: [facility]- chest pain Consulting Provider: Cardiology - [facility] Consult to Specialist Group: Cardiology When should Consulting Provider be notified: Now Person Notified: NAOMIE Date Notified: 08/25/16 Time Notified: 07:55 Discharging clinician: Rodney Payan MD
--- NOTE | 2016-08-26 10:53 | EKG Report ---
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
== END 2016-08-25 15:00 | disposition home or self-care (01) ==
LOC: N.EDINP 11:15 → N.ED 11:15 → N.TELEN 14:10
PROVIDERS: ADMIT Specialist; ATTEND Specialist

== ENCOUNTER 2017-01-04 10:00 | Observation (INO) ==
--- NOTE | 2017-01-04 14:11 | Inventional Radiology Consult ---
Assessment and Plan - Time spent with patient Time spent with patient: Less than 30 minutes (1) Hepatic metastasis Problem details: biopsy proven breast cancer met Status: Acute Assessment and plan: plan for microwave ablation of the lesion next week Current Visit: Yes IR Consult - Data of Consult Patient: known to practice within the last 3 years Consult date: 01/04/17 Requesting Physician: Rodney Payan - Consult Narrative Reason for consult: recurrence of liver lesion, biopsy proven metastatic breast cancer History of present illness: Flavia is a 76 year old F well known to the IR service. She was previously treated for her metastatic hepatic lesion with TACE in August 2015 without significant improvement. Then in Dec 2016 she have TARE with Y90 and the lesion has decreased in size and the PET activity was decreased on follow up. The most recent PET however now shows recurrence of activity in the hepatic lesion. The other mediastinal lesion has not recurred following Radiation treatment. The patient has been in good health otherwise since we last talked. She has cardiology follow up with Dr. Schumacher and had a negative cath and NM cardiac scan in the last year as well. The only new medicine is Ibrance. She is here today to discuss any further treatment options for the liver lesion. We discussed repeat TACE but I don't think that will be very beneficial given her anatomy and limited response. Due to her prior Y90 treatment, she is not a candidate to have an additional Y90 treatment. We discussed CT/ultrasound guided Microwave ablation of the residual tumor. This lesion is now smaller since the Y90 treatment. Risks including injury to the diaphragm, bleeding, infection and injury to the liver vessels or bile ducts was discussed. She agreed to proceed. ROS is otherwise negative. - Home Medications and Allergies Home Medications: Home Medications Medication Instructions Recorded Confirmed Type hydroCHLOROthiazide 25 mg PO BEDTIME 12/08/15 08/24/16 History [Hydrochlorothiazide] Aspirin EC Tab 81 mg PO QPM 08/24/16 08/24/16 History Metoprolol Succinate Xl [Toprol Xl] 25 mg PO QPM 08/24/16 08/24/16 History Palbociclib [Ibrance] 125 mg PO QAM 08/24/16 08/24/16 History Valsartan 320 mg PO QPM 08/24/16 08/24/16 History amLODIPine [Norvasc] 5 mg PO QPM 08/24/16 08/24/16 History Allergies/Adverse Reactions: Allergies Allergy/AdvReac Type Severity Reaction Status Date / Time No Known Allergies Allergy Verified 09/15/15 07:34 12 point system: reviewed and no additional remarkable complaints except as stated Medical,Surgical,& Family Hx - Medical History Cardio: History of: CAD, Hypertension, [place], Cardiovascular Problems (previous history of DVT in 2010) Neurology: History of: Cerebrovascular Accident (2015) No history of: Seizures HEENT: History of: Eye Problem (Glasses), Dental Problems Respiratory: Comment Only: Respiratory Problems (Flu Vac Apr 2015; No Pneum Vac) Gastrointestinal: History of: Liver Problems (Liver Mass 08/19/15 Liver Bx Confirmed Breast CA Mets Rt Lobe Liver), Gastrointestinal Cancer (Colon,Liver 2015;12/31/15 Sched for Radioembolization Liver Tumor), GI Problems (09/15/15 Sched for Chemo Embolization Rad Dr. Desai) Reproductive: History of: Breast Cancer (x2 07/2010 & 12/2012; Dr. Payan; Compleded 4 cycles of CMF 05/18/15) Other: History of: Cancer (Breast x2, Colon, Liver) No history of: Anesthesia Reactions - Surgical History Cardiac Surgeries: Sugical HX of: Cardiac Catheterization, Cardiac Surgery (CABG ), Vascular Access Devices (Mediport) Abdominal Surgeries: Surgical HX of: Abdominal Surgery (Colectomy), Colonoscopy Reproductive Surgeries: Surgical HX of;: Breast Surgery (Lt MRM 02/2010; Rt Mastectom 02/06/14), Gynecologic Surgery, Hysterectomy Orthopedic Surgeries: Surgical HX of;: Implanted Devices (Mediport) - Family History Family History: Reports;: Family Cancer, Family Heart Disease, Family Hypertension - Social History Smoking Status: Unknown if ever smoked Frequency of Alcohol Use: Unknown Type of Drug Use: None Exam - Labs Labs: labs drawn at Dr. Payan's office, results are not available yet. - Constitutional Vitals: Period Temp Pulse Resp BP Sys/Davis Pulse Ox Last 24 Hr 77-77 16-16 138-138/54-54 100-100 General appearance: normal weight - Eye Eye exam: Present: EOMI - Respiratory Respiratory exam: Present: clear to auscultation bilaterally - Cardiovascular Cardiovascular exam: Present: regular rate and rhythm - GI/Abdominal GI/Abdominal exam: Present: normal bowel sounds - Neurological Exam Neurological exam: Present: alert, oriented X3 - Psychiatric Psychiatric exam: Present: normal affect, normal mood - Skin Skin exam: Present: normal color, dry
[2017-01-09] MEDS ORDERED: SODIUM CHLORIDE 0.45% 1,000 ML IV SCH (07:20)
[2017-01-09] MEDS ORDERED: fentaNYL 100 MCG/2 ML VIAL IV ONE (08:00)
[2017-01-09] MEDS ORDERED: MIDAZOLAM 2 MG/2 ML VIAL IV ONE (08:00)
[2017-01-09] MEDS ORDERED: DIAZEPAM 5 MG TABLET PO STA (08:02)
--- NOTE | 2017-01-09 08:10 | IR History and Physical Update ---
IR Pre-Procedure - History and Physical H&P was reviewed, the patient examined and there: are no changes in the patients condition since last H&P was completed. Reason for procedure:: metastatic breast cancer to the liver - Dictation Physical: refer to scanned H&P, refer to H&P completed by admitting physician - Physical Exam Vital Signs: Last Vital Signs Pulse 77 01/04/17 13:49 Resp 16 01/04/17 13:49 BP 138/54 01/04/17 13:49 Pulse Ox 100 01/04/17 13:49 Mental Status: alert and oriented Heart: regular rate and rhythm Lung: clear to auscultation Abdomen: within normal limits - Sedation IR anesthesia plan for sedation: moderate ASA Class: II Airway Assessment: Class III: Soft palate, base of uvula visible - Risks Risks: Procedures explained. Risks discussed include, but not limited to, the following:[ bleeding, infection, injury to adjacent structures, pneumothorax, diaphgram injury] All questions answered. The following alternatives were discussed:[ surgery] Risks and benefits discussed with: patient, spouse Consent obtained from: patient, spouse Assessment and Plan - Time spent with patient Time spent with patient: Less than 30 minutes (1) Hepatic metastasis Problem details: biopsy proven breast cancer met Status: Acute Assessment and plan: plan for microwave ablation of the lesion next week
[2017-01-09 08:20] LABS: PT Patient Result 10.7 SECS; Partial Thromboplastin Time 23.1 SECS (0-40)
[2017-01-09] MEDS ORDERED: fentaNYL 100 MCG/2 ML VIAL ONE (08:47)
[2017-01-09] MEDS ORDERED: MIDAZOLAM 2 MG/2 ML VIAL ONE (08:48)
[2017-01-09] MEDS ORDERED: HYDROmorphone 2 MG/1 ML VIAL ONE (09:49)
--- NOTE | 2017-01-09 10:18 | Post Interventional Procedure ---
Pre-op diagnosis: breast cancer with hepatic metastatic disease Post-op diagnosis: same Procedure: CT/ultrasound guided liver tumor ablation Contrast: none Flouroscopy: none Radiologist: Robert Desai Anesthesia: conscious sedation Medications: 1.5 mg IV Versed 100 mcg IV Fentanyl 1 mg IV Dilaudid Total Sedation Time: 40 mins Specimens: none sent Estimated blood loss: none Complications: none Condition: stable Description/Findings: right hepatic lobe known, biopsy proven metastatic breast cancer lesion was targeted with imaging guidance and ablation performed with excellent result see formal dictation for details Assessment and Plan - Time spent with patient Time spent with patient: Less than 30 minutes (1) Hepatic metastasis Problem details: biopsy proven breast cancer met Status: Acute Assessment and plan: plan for microwave ablation of the lesion next week
[2017-01-09] MEDS ORDERED: HYDROmorphone 2 MG/1 ML VIAL IV ONE (10:25)
--- NOTE | 2017-01-09 11:08 | CT Report ---
CT guided tissue ablation, US guided needle placement CT Guided Renal Cryoablation Clinical Information: 76-year-old female with known biopsy-proven metastatic breast carcinoma to the liver. Patient is status post chemotherapy and radio embolization with PET-positive recurrence focally within the right lobe of the liver near the diaphragm. Physician[s]: Dr. Desai Procedure: The patient was advised of the benefits, risks, and alternatives of the procedure and informed consent was obtained. A time out was performed with verification of the patient's name, MRN, site of procedure, and type of procedure to be performed. The patient was positioned in the supine position on the table. The site was prepped and draped in the usual sterile fashion. Moderate conscious sedation was administered throughout the procedure for 45 minutes, during which a separate trained assistant women's rowing coach directly monitored the physiologic status of the patient. A total of 1.5 mg intravenous Versed, 100 mcg intravenous fentanyl and 1 mg intravenous Dilaudid was administered during the procedure and titrated amounts. Please see nursing flow sheets for this administration details. Preliminary CT demonstrates an approximately 3.5 cm mass in the right lobe of the of the liver consistent with the mass seen on prior imaging. The skin and expected tract were anesthestized with lidocaine. A small skin incision was then made. Using CT and ultrasound guidance, a Bidgely microwave ablation probe was advanced into the target lesion. A 10 minute ablation cycle was performed. Intraprocedural ultrasound demonstrates complete coverage of the target lesion. The ablation probe was then removed. Final CT demonstrates no immediate complication. The puncture site was cleansed and a sterile dressing was applied. The patient tolerated the procedure well and was returned to the PRU in stable condition. EBL: < 5 mL. Complications: None. Total number of images for the procedure: 1347 Conclusion: Successful microwave ablation of a biopsy-proven known metastatic lesion to the right lobe of the liver. PROCEDURE INTERPRETED AT [facility] DEPARTMENT OF RADIOLOGY Final Report Signed by: Robert Desai
--- NOTE | 2017-01-09 11:09 | XRay Report ---
Exam: XR chest post procedure Indication: Status post microwave ablation of right lobe of the liver near the diaphragm Comparison study: Prior chest radiograph 08/24/2016 Findings: Postsurgical changes noted with CABG median sternotomy wiring. Right chest Mediport is in stable position. There is no evidence of pneumothorax following microwave ablation procedure. Minimal basilar atelectasis is noted. Impression: No acute findings following recent procedure. No pneumothorax. Minimal basilar atelectasis is noted. PROCEDURE INTERPRETED AT [facility] DEPARTMENT OF RADIOLOGY Final Report Signed by: Robert Desai
[2017-01-09] MEDS ORDERED: ONDANSETRON 4 MG/2 ML VIAL IV PRN (11:31)
[2017-01-09] MEDS ORDERED: PNEUMOCOCCAL VACCINE (13 VALENT) 0.5 ML SYRINGE IM ONE (11:49)
[2017-01-09] MEDS: MORPHINE 2 MG/1 ML SYRINGE IV PRN ×3 (13:42→23:15)
[2017-01-10 08:17] VITALS: BP 138/60
[2017-01-10] MEDS ORDERED: HEPARIN LOCK FLUSH 500 UNIT/5 ML SYRINGE IV PRN (09:44)
--- NOTE | 2017-01-10 09:51 | Discharge Summary ---
Hospital Course - Hospital Course Hospital Course: Mr. Alejandro has known metastatic breast cancer to the liver and presented for image guided thermal ablation of the right hepatic lesion. After the procedure , she had some pain but was relatively well-controlled with oral medication overnight. This morning she is doing well and has been able to tolerate a diet and up and out of the bed to the bathroom without difficulty. She has minimal tenderness in the right lateral and posterior upper abdomen, which is expected. The incision site is clean and intact. At this point, she is ready for discharge. She has follow-up with Dr. Payan in early January. She will go home on ciprofloxacin b.i.d. for 14 days and with [place] for pain control if needed. We will schedule for CT abdomen liver mass protocol in 2 months to evaluate treatment. - Time spent with patient Time with patient DS: Less than 30 minutes Diagnosis - Discharge Diagnosis (1) Hepatic metastasis Status: Acute Specialty Discharge - Follow Up or Referrals Follow up with: Rodney Payan MD [Physician] - 02/01/17 8:45 am Discharge Plan - Discharge Data Disposition: Disch To Home/Self Care Condition at Discharge: Stable Discharge Diet: advance to your usual diet Activity: increase activity as tolerated Hygiene: keep area(s) dry, other Weight Bearing at Discharge: full weight bearing Driving: not for (24 hours) Contact your physician if you experience:: fever over 101, Redness or swelling, Nausea/Vomiting, pain uncontrolled by pain medications - Discharge Medications No Action hydroCHLOROthiazide [Hydrochlorothiazide] 25 mg PO BEDTIME amLODIPine [Norvasc] 5 mg PO QPM Valsartan 320 mg PO QPM Metoprolol Succinate Xl [Toprol Xl] 25 mg PO QPM Palbociclib [Ibrance] 1 tablet PO QAM Aspirin EC Tab 81 mg PO QPM - Follow Up or Referral Follow Up: Rodney Payan MD [Physician] - 02/01/17 8:45 am - Forms/Instructions Instructions: Percutaneous Liver Biopsy (DC) Additional Discharge Instructions: please schedule for CT abdomen with IV contrast liver mass protocol in 2 months Exam - Constitutional Vitals: Period Temp Pulse Resp BP Sys/Davis Pulse Ox Last 24 Hr 96.7 F-99 F 68-79 14-20 103-199/48-91 77-98 General appearance: normal weight, no acute distress - Eye Eye exam: Present: EOMI - Respiratory Respiratory exam: Present: clear to auscultation bilaterally - Cardiovascular Cardiovascular exam: Present: regular rate and rhythm - GI/Abdominal GI/Abdominal exam: Present: normal bowel sounds, tenderness (mild at insicision site, as expected). Absent: firm, guarding - Neurological Exam Neurological exam: Present: alert, oriented X3 - Psychiatric Psychiatric exam: Present: normal affect, normal mood - Skin Skin exam: Present: normal color, dry DS: Provider Date of admission: 01/10/17 07:48 Primary care physician: Michelle Lynch, Attending physician on admission: Rodney Payan MD Discharging clinician: Robert Desai MD Expected date of discharge: 01/10/17
== END 2017-01-10 10:30 | disposition home or self-care (01) ==
LOC: N.4E 10:00 → N.RAD 10:00 → EDSTATUS 01-09 07:00 → N.SDSINP 01-09 07:27 → N.4E 01-09 09:43
PROVIDERS: ADMIT Specialist; ATTEND Radiology Diagnostic Radiology

== ENCOUNTER 2017-06-04 10:20 | Inpatient (IN) ==
[2017-06-04] MEDS ORDERED: SODIUM CHLORIDE 0.9% 1,000 ML IV STA (10:50)
[2017-06-04] MEDS ORDERED: ONDANSETRON 4 MG/2 ML VIAL IV STA ×2 (10:50→13:09)
[2017-06-04] MEDS ORDERED: HYDROmorphone 2 MG/1 ML VIAL IV STA ×2 (10:50→13:21)
[2017-06-04 11:13] LABS: Basophils % 0.4 % (0.0-0.8); Eosinophils # 0.1 10*3/uL (0.0-0.87); Eosinophils % 1.2 % (0.00-10.9); Hematocrit 35.2 VOL% (35.7-47.0); Immature Granulocytes % 0.4 %; Immature Granulocytes Absolute 0.03 #; Lymphocytes # 0.9 10*3/uL (1.4-4.0); Lymphocytes % 12.7 % (21.3-54.2); Mean Corpuscular HGB Conc 34.1 GM/DL (32-36); Mean Corpuscular Hemoglobin 31 PG (27-34); Mean Corpuscular Volume 90.7 FL (87-102); Mean Platelet Volume 10.6 FL (9.6-12.0); Monocytes # 0.1 10*3/uL (0.11-0.8); Monocytes % 1.4 % (1.7-12.7); Neutrophils # 6.1 10*3/uL (1.4-7.4); Neutrophils % 83.9 % (38.7-73.9); Platelet Count 279 T/CUMM (130-400); Red Blood Count 3.88 MC/CUMM (3.8-5.5); Red Cell Distribution Width 13.2 % (9.3-17.3); White Blood Count 7.3 T/CUMM (4-12)
[2017-06-04] MEDS ORDERED: ONDANSETRON 4 MG/2 ML VIAL ONE ×2 (11:24→13:09)
[2017-06-04] MEDS ORDERED: HYDROmorphone 2 MG/1 ML VIAL ONE (11:24)
[2017-06-04 11:32] LABS: Ammonia < 10 UMOL/L (11-32)
[2017-06-04 11:37] LABS: Lactic Acid 2.2 MMOL/L (0.4-2.0)
[2017-06-04 12:33] LABS: Apearance,Urine Slightly Hazy (Clear); Bacteria,Urine Many /HPF (Few); Bilirubin,Urine Negative (Negative); Blood, Urine Negative (Negative); Glucose,Urine (UA) Negative (Negative); Ketones,Urine 80 mg/dL (Negative); Mucus,Urine Many /LPF (Occasional); Nitrite,Urine Positive (Negative); Protein,Urine 100 MG/DL; RBC,Urine 5 /HPF (0-4); Urine Specific Gravity 1.023 (1.001-1.035); WBC,Urine 121 /HPF (0-6)
[2017-06-04 12:35] LABS: Urine Color Dark yellow (Yellow)
[2017-06-04 12:36] LABS: Alanine Aminotransferase 22 U/L (13-56); Albumin 3.8 G/DL (3.4-5.0); Alkaline Phosphatase 28 U/L (45-117); Amylase 26 U/L (25-115); Aspartate Amino Transferase 20 U/L (0-37); Blood Urea Nitrogen 19 MG/DL (7-18); Calcium 9.4 MG/DL (8.5-10.1); Glucose 136 MG/DL (74-106); Osmolality,Calculated 280.5 MOS/KG (273-304); Potassium 2.9 MMOL/L (3.5-5.1); Sodium 139 MMOL/L (136-145); Total Protein 7.1 G/DL (6.4-8.3); Troponin I Only < 0.015 NG/ML (0.00-0.045)
[2017-06-04] MEDS ORDERED: POTASSIUM CHLORIDE 20 MEQ TABLET PO STA (12:48)
[2017-06-04 12:59] LABS: PT Patient Result 10.7 SECS
[2017-06-04] MEDS ORDERED: MEROPENEM 1,000 MG VIAL IV ONE (13:03)
[2017-06-04] MEDS ORDERED: POTASSIUM CHLORIDE 20 MEQ TABLET PO ONE (13:03)
[2017-06-04] MEDS: MEROPENEM 1,000 MG in SYRINGE 1 EACH IV SCH ×2 (13:13→22:24)
[2017-06-04] MEDS ORDERED: METOCLOPRAMIDE 10 MG/2 ML VIAL IV STA (13:52)
[2017-06-04] MEDS ORDERED: METOCLOPRAMIDE 10 MG/2 ML VIAL ONE (13:53)
[2017-06-04] MEDS ORDERED: hydrALAZINE 20 MG/1 ML VIAL IV PRN (14:31)
[2017-06-04] MEDS ORDERED: PROMETHAZINE 25 MG/1 ML VIAL IM PRN (15:20)
[2017-06-04] MEDS ORDERED: POTASSIUM CHLORIDE RIDER 10 MEQ in PREMIX 1 EACH IV PRN (15:27)
[2017-06-04] MEDS ORDERED: cefTRIAXone 1,000 MG in SODIUM CHLORIDE 0.9% 100 ML IV SCH (15:30)
[2017-06-04] MEDS ORDERED: POTASSIUM CHLORIDE RIDER 100 ML IV ONE (16:33)
[2017-06-04] MEDS: SODIUM CHLORIDE 0.9% 1,000 ML IV SCH ×2 (16:41→22:16)
[2017-06-04] MEDS ORDERED: PANTOPRAZOLE 40 MG VIAL IV ONE (17:23)
[2017-06-04] MEDS: PANTOPRAZOLE 40 MG VIAL IV SCH (17:24)
[2017-06-04] MEDS ORDERED: MORPHINE 10 MG/1 ML VIAL ONE (20:00)
[2017-06-04] MEDS ORDERED: cloNIDine 0.2 MG/24 HR PATCH TRANSDERM SCH (20:30)
[2017-06-04] MEDS: MORPHINE 10 MG/1 ML VIAL IV PRN (22:16)
[2017-06-04] MEDS: ONDANSETRON 4 MG/2 ML VIAL IV PRN (22:17)
[2017-06-04] MEDS: MORPHINE 10 MG/1 ML VIAL IV SCH ×2 (23:35→23:36)
[2017-06-05] MEDS: MORPHINE 10 MG/1 ML VIAL IV SCH ×8 (04:08→21:23)
[2017-06-05] MEDS: SODIUM CHLORIDE 0.9% 1,000 ML IV SCH (04:50)
[2017-06-05] MEDS: MORPHINE 10 MG/1 ML VIAL IV PRN ×2 (05:13→08:57)
[2017-06-05] MEDS: MEROPENEM 1,000 MG in SYRINGE 1 EACH IV SCH ×3 (05:14→20:11)
[2017-06-05 05:23] LABS: Basophils % 0.5 % (0.0-0.8); Eosinophils # 0.1 10*3/uL (0.0-0.87); Eosinophils % 2.1 % (0.00-10.9); Hematocrit 28.5 VOL% (35.7-47.0); Hemoglobin 9.6 GM/DL (12.0-16.0); Immature Granulocytes % 0.5 %; Immature Granulocytes Absolute 0.02 #; Lymphocytes # 0.8 10*3/uL (1.4-4.0); Lymphocytes % 18.3 % (21.3-54.2); Mean Corpuscular HGB Conc 33.7 GM/DL (32-36); Mean Corpuscular Hemoglobin 31 PG (27-34); Mean Corpuscular Volume 91.3 FL (87-102); Mean Platelet Volume 10.5 FL (9.6-12.0); Monocytes # 0.2 10*3/uL (0.11-0.8); Monocytes % 3.4 % (1.7-12.7); Neutrophils # 3.3 10*3/uL (1.4-7.4); Neutrophils % 75.2 % (38.7-73.9); Platelet Count 203 T/CUMM (130-400); Red Blood Count 3.12 MC/CUMM (3.8-5.5); Red Cell Distribution Width 13.2 % (9.3-17.3); White Blood Count 4.4 T/CUMM (4-12)
[2017-06-05 05:55] LABS: Bilirubin,Total 1.7 MG/DL (0.2-1.0); Calcium 8.3 MG/DL (8.5-10.1); Osmolality,Calculated 279.3 MOS/KG (273-304); Total Protein 5.6 G/DL (6.4-8.3)
[2017-06-05] MEDS: PANTOPRAZOLE 40 MG VIAL IV SCH (08:50)
[2017-06-05] MEDS ORDERED: POTASSIUM CHLORIDE RIDER 20 MEQ in PREMIX 1 EACH IV ONE (09:00)
[2017-06-05] MEDS: SODIUM CHLOR 0.45% KCL 20 MEQ 20 MEQ/1,000 ML BAG IV SCH (12:02)
[2017-06-05] MEDS ORDERED: POTASSIUM CHLORIDE RIDER 10 MEQ in PREMIX 1 EACH IV PRN (12:05)
[2017-06-05] MEDS: POTASSIUM CHLORIDE RIDER 20 MEQ in PREMIX 1 EACH IV PRN ×2 (12:55→14:13)
[2017-06-05] MEDS: ONDANSETRON 4 MG/2 ML VIAL IV PRN (13:00)
[2017-06-06] MEDS: MORPHINE 10 MG/1 ML VIAL IV SCH ×13 (02:03→23:09)
[2017-06-06] MEDS: MEROPENEM 1,000 MG in SYRINGE 1 EACH IV SCH ×3 (04:42→20:29)
[2017-06-06] MEDS: SODIUM CHLOR 0.45% KCL 20 MEQ 20 MEQ/1,000 ML BAG IV SCH ×2 (04:42→23:30)
[2017-06-06 06:16] LABS: Calcium 8.3 MG/DL (8.5-10.1); Osmolality,Calculated 276.3 MOS/KG (273-304); Potassium 3.4 MMOL/L (3.5-5.1)
[2017-06-06] MEDS: PANTOPRAZOLE 40 MG VIAL IV SCH (09:41)
[2017-06-06] MEDS ORDERED: LIDOCAINE 100 MG/5 ML SYRINGE ONE (10:44)
[2017-06-06] MEDS ORDERED: PROPOFOL 200 MG/20 ML VIAL IV ONE (10:44)
[2017-06-06] MEDS: SUCRALFATE 1 GM/10 ML UDCUP PO SCH ×3 (11:50→20:28)
[2017-06-06] MEDS ORDERED: HYDROcod/ACETAMIN 7.5-325 MG/15 ML UDCUP PO PRN ×2 (13:24)
[2017-06-06] MEDS: POTASSIUM CHLORIDE RIDER 20 MEQ in PREMIX 1 EACH IV PRN ×2 (17:03→19:05)
[2017-06-07] MEDS: MORPHINE 10 MG/1 ML VIAL IV SCH ×6 (00:35→13:49)
[2017-06-07] MEDS: MEROPENEM 1,000 MG in SYRINGE 1 EACH IV SCH ×2 (05:34→13:49)
[2017-06-07] MEDS: PANTOPRAZOLE 40 MG VIAL IV SCH (09:43)
[2017-06-07] MEDS: SUCRALFATE 1 GM/10 ML UDCUP PO SCH ×2 (09:43→13:48)
[2017-06-07 11:43] VITALS: BP 136/71
[2017-06-07] MEDS ORDERED: NITROFURANTOIN MACRO/MONO 100 MG CAPSULE PO SCH (21:00)
== END 2017-06-07 14:10 | disposition home or self-care (01) | DRG 381 ==
LOC: N.ED 10:20 → SUATTDRO 14:11 → N.EDINP 19:33 → N.2E 19:58
PROVIDERS: ADMIT Hospitalist; ATTEND Pediatrics

== ENCOUNTER 2017-11-15 18:29 | Inpatient (IN) ==
[2017-11-15] MEDS ORDERED: ONDANSETRON 4 MG/2 ML VIAL IV PRN (20:36)
[2017-11-15] MEDS ORDERED: DILTIAZEM INJ 100 MG in SODIUM CHLORIDE 0.9% 100 ML IV SCH (21:30)
[2017-11-16 01:43] LABS: Basophils % 0.4 % (0.0-0.8); Hematocrit 31.4 VOL% (35.7-47.0); Hemoglobin 10.2 GM/DL (12.0-16.0); Immature Granulocytes % 0.7 %; Immature Granulocytes Absolute 0.04 #; Lymphocytes # 0.9 10*3/uL (1.4-4.0); Lymphocytes % 15.2 % (21.3-54.2); Mean Corpuscular HGB Conc 32.5 GM/DL (32-36); Mean Corpuscular Hemoglobin 29 PG (27-34); Mean Corpuscular Volume 88.7 FL (87-102); Monocytes # 0.2 10*3/uL (0.11-0.8); Monocytes % 2.9 % (1.7-12.7); Neutrophils # 4.5 10*3/uL (1.4-7.4); Neutrophils % 80.8 % (38.7-73.9); Platelet Count 227 T/CUMM (130-400); Red Blood Count 3.54 MC/CUMM (3.8-5.5); Red Cell Distribution Width 14.8 % (9.3-17.3); White Blood Count 5.6 T/CUMM (4-12)
[2017-11-16 02:02] LABS: Albumin 3.2 G/DL (3.4-5.0); Bilirubin,Total 0.4 MG/DL (0.2-1.0); Calcium 8.2 MG/DL (8.5-10.1); Potassium 3.4 MMOL/L (3.5-5.1); Risk Ratio 4.47; Total Protein 6.4 G/DL (6.4-8.3); VLDL CHOLESTEROL 40.2 MG/DL
[2017-11-16] MEDS ORDERED: POTASSIUM CHLORIDE 20 MEQ TABLET PO PRN (08:08)
[2017-11-16] MEDS ORDERED: DILTIAZEM CD 120 MG CAPSULE PO SCH (09:00)
[2017-11-16] MEDS ORDERED: ENOXAPARIN 60 MG/0.6 ML SYRINGE SUBCUT SCH (09:00)
[2017-11-16] MEDS ORDERED: ASPIRIN EC 81 MG TABLET PO SCH (09:00)
[2017-11-16] MEDS ORDERED: PANTOPRAZOLE 40 MG TABLET PO SCH (09:00)
[2017-11-16 12:00] VITALS: BP 147/58
[2017-11-17] MEDS ORDERED: POTASSIUM CHLORIDE 20 MEQ TABLET PO SCH (09:00)
[2017-11-17] MEDS ORDERED: DILTIAZEM CD 120 MG CAPSULE PO SCH (09:00)
[2017-11-17] MEDS ORDERED: METOPROLOL SUCCINATE XL 25 MG TABLET PO SCH (09:00)
== END 2017-11-16 17:01 | disposition home or self-care (01) | DRG 309 ==
LOC: N.TELEN 20:26 → SUATTDRO 20:26
PROVIDERS: ADMIT Internal Medicine; ATTEND Internal Medicine

== ENCOUNTER 2018-12-08 20:50 | Observation (INO) ==
[2018-12-08] MEDS ORDERED: ONDANSETRON 4 MG/2 ML VIAL IV STA (21:35)
[2018-12-08] MEDS ORDERED: SODIUM CHLORIDE 0.9% 1,000 ML IV STA (21:35)
[2018-12-08 22:12] LABS: Basophils % 0.3 % (0.0-0.8); Eosinophils # 0.1 10*3/uL (0.0-0.87); Eosinophils % 0.7 % (0.00-10.9); Hematocrit 32.6 VOL% (35.7-47.0); Hemoglobin 10.3 GM/DL (12.0-16.0); Immature Granulocytes % 0.7 %; Immature Granulocytes Absolute 0.06 #; Lymphocytes # 0.4 10*3/uL (1.4-4.0); Lymphocytes % 4.7 % (21.3-54.2); Mean Corpuscular HGB Conc 31.6 GM/DL (32-36); Mean Corpuscular Volume 89.3 FL (87-102); Mean Platelet Volume 10.7 FL (9.6-12.0); Monocytes % 11.3 % (1.7-12.7); Neutrophils % 82.3 % (38.7-73.9); Platelet Count 225 T/CUMM (130-400); Red Blood Count 3.65 MC/CUMM (3.8-5.5); Red Cell Distribution Width 16.1 % (9.3-17.3); White Blood Count 8.9 T/CUMM (4-12)
[2018-12-08 22:33] LABS: Band Neutrophils 1 % (0-10); Eosinophils 1 % (0-10); Hypochromasia Slight; Lymphocytes 6 % (20-55); Microcytosis 1+; Segmented Neutrophils 84 % (50-85); Total Cells Counted 100
[2018-12-08 22:34] LABS: Elliptocytes Few; Platelet Estimate Adequate
[2018-12-08 22:49] LABS: Apearance,Urine CLEAR (Clear); Bilirubin,Urine Negative (Negative); Blood, Urine Negative (Negative); Glucose,Urine (UA) Negative (Negative); Ketones,Urine Negative (Negative); Nitrite,Urine Negative (Negative); Protein,Urine 30 MG/DL; RBC,Urine 3 /HPF (0-4); Squamous Epithelial Cell,Urine Occasional /HPF (0-10); Urine Urobilinogen < 2.0 EU/DL (0.2-1.0); WBC,Urine 14 /HPF (0-6)
[2018-12-08 22:50] LABS: Urine Color Dark yellow (Yellow)
[2018-12-08] MEDS ORDERED: cefTRIAXone 1,000 MG in SODIUM CHLORIDE 0.9% 100 ML IV STA (23:01)
[2018-12-08] MEDS ORDERED: hydrALAZINE 20 MG/1 ML VIAL IV STA (23:37)
[2018-12-09 00:48] LABS: Albumin 3.4 G/DL (3.4-5.0); Bilirubin,Total 2.5 MG/DL (0.2-1.0); Calcium 8.7 MG/DL (8.5-10.1); Osmolality,Calculated 282.3 MOS/KG (273-304); Total Protein 6.4 G/DL (6.4-8.3)
[2018-12-09] MEDS ORDERED: MORPHINE 4 MG/1 ML VIAL IV STA (01:20)
[2018-12-09] MEDS ORDERED: ONDANSETRON 4 MG/2 ML VIAL IV STA (01:20)
[2018-12-09] MEDS ORDERED: MORPHINE 4 MG/1 ML VIAL IV PRN (01:21)
[2018-12-09] MEDS ORDERED: ONDANSETRON 4 MG/2 ML VIAL IV PRN (01:21)
[2018-12-09] MEDS ORDERED: NICOTINE 21 MG/24 HR PATCH TRANSDERM PRN (01:21)
[2018-12-09] MEDS ORDERED: diphenhydrAMINE CAP 25 MG CAPSULE PO PRN (01:21)
[2018-12-09] MEDS ORDERED: PROMETHAZINE 25 MG/1 ML VIAL IM PRN (01:21)
[2018-12-09] MEDS ORDERED: ACETAMINOPHEN 325 MG TABLET PO PRN (01:21)
[2018-12-09] MEDS ORDERED: BISACODYL 5 MG TABLET PO PRN (01:21)
[2018-12-09] MEDS ORDERED: guaiFENesin/DM ER 600-30 MG TABLET PO PRN (01:21)
[2018-12-09 01:41] LABS: Risk Ratio 5.53; VLDL CHOLESTEROL 24.8 MG/DL
[2018-12-09] MEDS: PANTOPRAZOLE 40 MG VIAL IV SCH ×2 (02:40→20:30)
[2018-12-09] MEDS: SODIUM CHLORIDE 0.9% 1,000 ML IV SCH ×2 (02:50→10:38)
[2018-12-09 03:58] LABS: Basophils % 0.6 % (0.0-0.8); Eosinophils # 0.1 10*3/uL (0.0-0.87); Eosinophils % 0.7 % (0.00-10.9); Hematocrit 30.9 VOL% (35.7-47.0); Hemoglobin 9.8 GM/DL (12.0-16.0); Immature Granulocytes Absolute 0.07 #; Lymphocytes # 0.4 10*3/uL (1.4-4.0); Lymphocytes % 5.8 % (21.3-54.2); Mean Corpuscular HGB Conc 31.7 GM/DL (32-36); Mean Corpuscular Volume 90.1 FL (87-102); Mean Platelet Volume 10.9 FL (9.6-12.0); Monocytes % 11.4 % (1.7-12.7); Neutrophils % 80.5 % (38.7-73.9); Platelet Count 208 T/CUMM (130-400); Red Blood Count 3.43 MC/CUMM (3.8-5.5); Red Cell Distribution Width 16.1 % (9.3-17.3); White Blood Count 6.9 T/CUMM (4-12)
[2018-12-09] MEDS: LOSARTAN 50 MG TABLET PO SCH (10:39)
[2018-12-09] MEDS: DILTIAZEM CD 120 MG CAPSULE PO SCH (10:40)
[2018-12-09] MEDS: ASPIRIN EC 81 MG TABLET PO SCH (10:40)
[2018-12-09] MEDS: METOPROLOL SUCCINATE XL 25 MG TABLET PO SCH (10:41)
[2018-12-09] MEDS: cefTRIAXone 1,000 MG in SYRINGE 1 EACH IV SCH ×2 (10:42→21:44)
[2018-12-09] MEDS ORDERED: ENOXAPARIN 40 MG/0.4 ML SYRINGE SUBCUT SCH (13:30)
[2018-12-09] MEDS: metroNIDAZOLE INJ 500 MG in PREMIX 1 EACH IV SCH ×2 (14:05→20:33)
[2018-12-09] MEDS: POTASSIUM CHLORIDE RIDER 10 MEQ in PREMIX 1 EACH IV PRN ×2 (15:39→18:20)
[2018-12-10] MEDS: SODIUM CHLORIDE 0.9% 1,000 ML IV SCH ×2 (01:01→01:30)
[2018-12-10 05:08] LABS: Eosinophils # 0.1 10*3/uL (0.0-0.87); Eosinophils % 1.8 % (0.00-10.9); Hematocrit 30.7 VOL% (35.7-47.0); Hemoglobin 9.7 GM/DL (12.0-16.0); Immature Granulocytes Absolute 0.04 #; Lymphocytes # 0.7 10*3/uL (1.4-4.0); Lymphocytes % 17.1 % (21.3-54.2); Mean Corpuscular HGB Conc 31.6 GM/DL (32-36); Mean Platelet Volume 11.3 FL (9.6-12.0); Neutrophils % 63.1 % (38.7-73.9); Platelet Count 205 T/CUMM (130-400); Red Blood Count 3.45 MC/CUMM (3.8-5.5); Red Cell Distribution Width 16.2 % (9.3-17.3); White Blood Count 3.8 T/CUMM (4-12)
[2018-12-10 05:26] LABS: Calcium 8.2 MG/DL (8.5-10.1); Osmolality,Calculated 284.7 MOS/KG (273-304)
[2018-12-10] MEDS: metroNIDAZOLE INJ 500 MG in PREMIX 1 EACH IV SCH (05:37)
[2018-12-10 05:47] LABS: Eosinophils 3 % (0-10); Hypochromasia Slight; Lymphocytes 16 % (20-55); Microcytosis Slight; Ovalocytes Slight; Platelet Estimate Adequate; Segmented Neutrophils 74 % (50-85); Total Cells Counted 100
[2018-12-10] MEDS: POTASSIUM CHLORIDE RIDER 10 MEQ in PREMIX 1 EACH IV PRN ×4 (06:35→10:38)
[2018-12-10] MEDS: METOPROLOL SUCCINATE XL 25 MG TABLET PO SCH (08:49)
[2018-12-10] MEDS: LOSARTAN 50 MG TABLET PO SCH (08:49)
[2018-12-10] MEDS: DILTIAZEM CD 120 MG CAPSULE PO SCH (08:49)
[2018-12-10] MEDS: ASPIRIN EC 81 MG TABLET PO SCH (08:49)
[2018-12-10] MEDS: PANTOPRAZOLE 40 MG VIAL IV SCH (08:50)
[2018-12-10] MEDS: cefTRIAXone 1,000 MG in SYRINGE 1 EACH IV SCH (10:33)
[2018-12-10 10:56] LABS: Albumin 2.4 G/DL (3.4-5.0); Bilirubin,Direct 0.51 MG/DL (0.0-0.20); Bilirubin,Indirect 0.2 MG/DL (0.0-1.0); Bilirubin,Total 0.7 MG/DL (0.2-1.0); Total Protein 5.7 G/DL (6.4-8.3)
[2018-12-10 13:02] VITALS: BP 157/77
[2018-12-11] MEDS ORDERED: PANTOPRAZOLE 40 MG TABLET PO SCH (09:00)
== END 2018-12-10 13:25 | disposition home or self-care (01) ==
LOC: N.ED 20:50 → N.EDINP 20:50 → N.4E 12-09 01:35
PROVIDERS: ADMIT Internal Medicine; ATTEND Internal Medicine

== ENCOUNTER 2019-01-23 08:49 | Inpatient (IN) ==
[2019-01-21 11:06] LABS: Basophils # 0.1 10*3/uL (0.0-0.2); Eosinophils # 0.5 10*3/uL (0.0-0.87); Eosinophils % 7.6 % (0.00-10.9); Hematocrit 34.6 VOL% (35.7-47.0); Hemoglobin 10.8 GM/DL (12.0-16.0); Immature Granulocytes % 0.3 %; Immature Granulocytes Absolute 0.02 #; Lymphocytes # 1.1 10*3/uL (1.4-4.0); Lymphocytes % 18.3 % (21.3-54.2); Mean Corpuscular HGB Conc 31.2 GM/DL (32-36); Mean Corpuscular Volume 90.6 FL (87-102); Mean Platelet Volume 10.6 FL (9.6-12.0); Monocytes % 9.1 % (1.7-12.7); Neutrophils % 63.7 % (38.7-73.9); Platelet Count 358 T/CUMM (130-400); Red Blood Count 3.82 MC/CUMM (3.8-5.5); Red Cell Distribution Width 16.9 % (9.3-17.3)
[2019-01-21 11:28] LABS: Calcium 9.2 MG/DL (8.5-10.1); Osmolality,Calculated 285.8 MOS/KG (273-304)
[~2019-01-23 08:49] MED LIST: INDOCYANINE GREEN 25 MG VIAL IV ONE; ceFAZolin 1,000 MG in SYRINGE 1 EACH IV ONE
[2019-01-23] MEDS ORDERED: INDOCYANINE GREEN 25 MG VIAL IV STA (09:45)
[2019-01-23] MEDS ORDERED: INDOCYANINE GREEN 25 MG VIAL IV ONE (09:47)
[2019-01-23] MEDS ORDERED: ceFAZolin 1,000 MG VIAL ONE (09:48)
[2019-01-23] MEDS: LACTATED RINGERS 1,000 ML IV SCH ×4 (10:00→23:37)
[2019-01-23] MEDS ORDERED: BUPIVACAINE 0.25% /EPI 10 ML VIAL ONE (10:26)
[2019-01-23] MEDS ORDERED: TISSUE ADHESIVE 1 EACH APPLICATOR TOP ONE (10:26)
[2019-01-23] MEDS ORDERED: LIDOCAINE 1% 20 ML VIAL ONE (10:27)
[2019-01-23] MEDS ORDERED: PROPOFOL 200 MG/20 ML VIAL IV ONE (12:45)
[2019-01-23] MEDS ORDERED: SEVOFLURANE 1 UNIT/15 MINUTE INH ONE (12:45)
[2019-01-23] MEDS ORDERED: fentaNYL 100 MCG/2 ML VIAL ONE (12:45)
[2019-01-23] MEDS ORDERED: MIDAZOLAM 2 MG/2 ML VIAL ONE (12:46)
[2019-01-23] MEDS ORDERED: ONDANSETRON 4 MG/2 ML VIAL ONE ×2 (12:46→12:58)
[2019-01-23] MEDS ORDERED: GLYCOPYRROLATE 0.4 MG/2 ML VIAL ONE (12:46)
[2019-01-23] MEDS ORDERED: NEOSTIGMINE 10 MG/10 ML VIAL ONE (12:46)
[2019-01-23] MEDS ORDERED: ROCURONIUM 100 MG/10 ML VIAL IV ONE (12:46)
[2019-01-23] MEDS ORDERED: PHENYLEPHRINE 1 MG/10 ML SYRINGE IV ONE (12:46)
[2019-01-23] MEDS ORDERED: HYDROmorphone 2 MG/1 ML VIAL ONE (12:58)
[2019-01-23] MEDS: HYDROmorphone 2 MG/1 ML VIAL IV PRN ×5 (13:00→22:04)
[2019-01-23] MEDS ORDERED: ONDANSETRON 4 MG/2 ML VIAL IV PRN ×2 (13:01→14:44)
[2019-01-23] MEDS ORDERED: KETOROLAC 15 MG/1 ML VIAL IV PRN (14:44)
[2019-01-23] MEDS ORDERED: PROMETHAZINE 25 MG/1 ML VIAL IM PRN (14:44)
[2019-01-23 16:57] LABS: Basophils # 0.1 10*3/uL (0.0-0.2); Basophils % 0.5 % (0.0-0.8); Eosinophils # 0.1 10*3/uL (0.0-0.87); Eosinophils % 0.5 % (0.00-10.9); Hematocrit 36.6 VOL% (35.7-47.0); Hemoglobin 11.5 GM/DL (12.0-16.0); Immature Granulocytes % 0.8 %; Immature Granulocytes Absolute 0.15 #; Lymphocytes # 0.8 10*3/uL (1.4-4.0); Lymphocytes % 4.4 % (21.3-54.2); Mean Corpuscular HGB Conc 31.4 GM/DL (32-36); Mean Corpuscular Volume 90.8 FL (87-102); Mean Platelet Volume 11.3 FL (9.6-12.0); Monocytes % 3.2 % (1.7-12.7); Neutrophils % 90.6 % (38.7-73.9); Platelet Count 349 T/CUMM (130-400); Red Blood Count 4.03 MC/CUMM (3.8-5.5); Red Cell Distribution Width 16.8 % (9.3-17.3); White Blood Count 19.3 T/CUMM (4-12)
[2019-01-23 17:22] LABS: Albumin 3.3 G/DL (3.4-5.0); Bilirubin,Total 1.1 MG/DL (0.2-1.0); Calcium 9.2 MG/DL (8.5-10.1); Total Protein 7.4 G/DL (6.4-8.3)
[2019-01-23] MEDS ORDERED: hydrALAZINE 20 MG/1 ML VIAL IV PRN (17:39)
[2019-01-23 19:05] LABS: Band Neutrophils 2 % (0-10); Lymphocytes 3 % (20-55); Segmented Neutrophils 90 % (50-85); Total Cells Counted 100
[2019-01-23 19:06] LABS: Macrocytosis Slight; Platelet Estimate Adequate
[2019-01-23 19:07] LABS: Ovalocytes Slight
[2019-01-24] MEDS: LACTATED RINGERS 1,000 ML IV SCH ×3 (06:20→15:47)
[2019-01-24 06:32] LABS: Basophils # 0.1 10*3/uL (0.0-0.2); Basophils % 0.3 % (0.0-0.8); Eosinophils % 0.1 % (0.00-10.9); Hematocrit 33.9 VOL% (35.7-47.0); Hemoglobin 10.6 GM/DL (12.0-16.0); Immature Granulocytes % 0.5 %; Immature Granulocytes Absolute 0.08 #; Lymphocytes # 1.3 10*3/uL (1.4-4.0); Lymphocytes % 8.1 % (21.3-54.2); Mean Corpuscular HGB Conc 31.3 GM/DL (32-36); Mean Corpuscular Volume 90.9 FL (87-102); Mean Platelet Volume 10.9 FL (9.6-12.0); Monocytes % 6.3 % (1.7-12.7); Neutrophils % 84.7 % (38.7-73.9); Platelet Count 336 T/CUMM (130-400); Red Blood Count 3.73 MC/CUMM (3.8-5.5); Red Cell Distribution Width 16.7 % (9.3-17.3); White Blood Count 15.5 T/CUMM (4-12)
[2019-01-24 06:45] LABS: Albumin 2.9 G/DL (3.4-5.0); Calcium 8.9 MG/DL (8.5-10.1); Total Protein 6.4 G/DL (6.4-8.3)
[2019-01-24] MEDS: ENOXAPARIN 40 MG/0.4 ML SYRINGE SUBCUT SCH (06:45)
[2019-01-24] MEDS: METOPROLOL SUCCINATE XL 25 MG TABLET PO SCH (09:35)
[2019-01-24] MEDS: DILTIAZEM CD 120 MG CAPSULE PO SCH (09:35)
[2019-01-24] MEDS: ASPIRIN EC 81 MG TABLET PO SCH (09:35)
[2019-01-24] MEDS: PANTOPRAZOLE 40 MG TABLET PO SCH (09:35)
[2019-01-24] MEDS: LOSARTAN 50 MG TABLET PO SCH (11:40)
[2019-01-25] MEDS: ENOXAPARIN 40 MG/0.4 ML SYRINGE SUBCUT SCH (05:50)
[2019-01-25] MEDS: PANTOPRAZOLE 40 MG TABLET PO SCH (08:55)
[2019-01-25] MEDS: ASPIRIN EC 81 MG TABLET PO SCH (08:55)
[2019-01-25] MEDS: METOPROLOL SUCCINATE XL 25 MG TABLET PO SCH (08:55)
[2019-01-25] MEDS: LOSARTAN 50 MG TABLET PO SCH (08:55)
[2019-01-25] MEDS: DILTIAZEM CD 120 MG CAPSULE PO SCH (08:55)
[2019-01-25] MEDS: LACTATED RINGERS 1,000 ML IV SCH ×2 (08:56→08:59)
[2019-01-25 11:48] VITALS: BP 176/115
== END 2019-01-25 13:26 | disposition home or self-care (01) | DRG 418 ==
LOC: N.OR 08:49 → N.SDSINP 08:49 → N.3E 14:29
PROVIDERS: ADMIT Surgery; ATTEND Surgery

== ENCOUNTER 2019-02-23 20:15 | Inpatient (IN) ==
[2019-02-23] MEDS ORDERED: SODIUM CHLORIDE 0.9% 1,000 ML IV STA (21:20)
[2019-02-23 21:33] LABS: Basophils # 0.1 10*3/uL (0.0-0.2); Basophils % 0.5 % (0.0-0.8); Eosinophils # 0.2 10*3/uL (0.0-0.87); Eosinophils % 1.7 % (0.00-10.9); Hematocrit 42.9 VOL% (35.7-47.0); Hemoglobin 13.9 GM/DL (12.0-16.0); Immature Granulocytes % 0.4 %; Immature Granulocytes Absolute 0.04 #; Lymphocytes # 1.1 10*3/uL (1.4-4.0); Lymphocytes % 11.1 % (21.3-54.2); Mean Corpuscular HGB Conc 32.4 GM/DL (32-36); Monocytes % 5.5 % (1.7-12.7); Neutrophils % 80.8 % (38.7-73.9); Platelet Count 299 T/CUMM (130-400); Red Blood Count 5.23 MC/CUMM (3.8-5.5); Red Cell Distribution Width 14.6 % (9.3-17.3); White Blood Count 9.8 T/CUMM (4-12)
[2019-02-23 21:37] LABS: Albumin 3.8 G/DL (3.4-5.0); Bilirubin,Total 0.9 MG/DL (0.2-1.0); Calcium 9.8 MG/DL (8.5-10.1); Osmolality,Calculated 295.1 MOS/KG (273-304); Total Protein 8.3 G/DL (6.4-8.3)
[2019-02-23 21:51] LABS: PT Patient Result 10.6 SECS (9.6-12.2)
[2019-02-23] MEDS ORDERED: INSULIN REGULAR 100 UNIT/ML IV STA (22:00)
[2019-02-23 22:23] LABS: Apearance,Urine Slightly Hazy (Clear); Bilirubin,Urine Negative (Negative); Blood, Urine Negative (Negative); Glucose,Urine (UA) >=500 mg/dL (Negative); Hyaline Casts,Urine 20 /LPF (0-3); Ketones,Urine Negative (Negative); Mucus,Urine Occasional /LPF (Occasional); Nitrite,Urine Negative (Negative); Protein,Urine 100 MG/DL; RBC,Urine 3 /HPF (0-4); Squamous Epithelial Cell,Urine Occasional /HPF (0-10); Urine Color Yellow (Yellow); Urine Specific Gravity 1.027 (1.001-1.035); Urine Urobilinogen < 2.0 EU/DL (0.2-1.0); WBC,Urine 155 /HPF (0-6)
[2019-02-23] MEDS ORDERED: ENOXAPARIN 30 MG/0.3 ML SYRINGE SUBCUT STA (22:56)
[2019-02-23] MEDS ORDERED: cefTRIAXone 1,000 MG in SODIUM CHLORIDE 0.9% 100 ML IV STA (22:56)
[2019-02-23] MEDS ORDERED: ONDANSETRON 4 MG/2 ML VIAL IV PRN (23:22)
[2019-02-23] MEDS ORDERED: GLUCAGON 1 MG VIAL IM PRN (23:27)
[2019-02-23] MEDS ORDERED: DEXTROSE 50% 25 GM/50 ML VIAL IV PRN (23:27)
[2019-02-24] MEDS: MORPHINE 4 MG/1 ML VIAL IV PRN ×2 (00:54→05:10)
[2019-02-24] MEDS: SODIUM CHLORIDE 0.9% 1,000 ML IV SCH ×2 (01:04→13:49)
[2019-02-24] MEDS: INSULIN REGULAR 100 UNIT/ML SUBCUT SCH ×5 (01:30→21:47)
[2019-02-24] MEDS ORDERED: dilTIAZem Drip 125 MG/125 ML PREMIX IV SCH (01:30)
[2019-02-24] MEDS: cefTRIAXone 2,000 MG in SYRINGE 1 EACH IV SCH (05:11)
[2019-02-24 05:31] LABS: Basophils # 0.1 10*3/uL (0.0-0.2); Basophils % 0.6 % (0.0-0.8); Eosinophils # 0.1 10*3/uL (0.0-0.87); Eosinophils % 1.3 % (0.00-10.9); Hematocrit 38.5 VOL% (35.7-47.0); Hemoglobin 12.4 GM/DL (12.0-16.0); Immature Granulocytes % 0.2 %; Immature Granulocytes Absolute 0.02 #; Lymphocytes # 1.5 10*3/uL (1.4-4.0); Lymphocytes % 17.9 % (21.3-54.2); Mean Corpuscular HGB Conc 32.2 GM/DL (32-36); Mean Corpuscular Volume 83.5 FL (87-102); Mean Platelet Volume 11.1 FL (9.6-12.0); Monocytes % 7.5 % (1.7-12.7); Neutrophils % 72.5 % (38.7-73.9); Platelet Count 262 T/CUMM (130-400); Red Blood Count 4.61 MC/CUMM (3.8-5.5); Red Cell Distribution Width 14.6 % (9.3-17.3); White Blood Count 8.5 T/CUMM (4-12)
[2019-02-24 06:00] LABS: Albumin 3.2 G/DL (3.4-5.0); Bilirubin,Total 1.1 MG/DL (0.2-1.0); Osmolality,Calculated 292.3 MOS/KG (273-304); Total Protein 7.1 G/DL (6.4-8.3)
[2019-02-24] MEDS ORDERED: MAGNESIUM SULF RIDER 2 GM in PREMIX 1 EACH IV PRN (07:42)
[2019-02-24] MEDS: PANTOPRAZOLE 40 MG TABLET PO SCH (09:02)
[2019-02-24] MEDS: POTASSIUM CHLORIDE 20 MEQ TABLET PO PRN ×4 (09:38→17:17)
[2019-02-24] MEDS: DILTIAZEM 90 MG TABLET PO SCH ×4 (09:38→21:50)
[2019-02-24] MEDS: MAGNESIUM SULF RIDER 4 GM in PREMIX 1 EACH IV PRN (11:11)
[2019-02-24] MEDS: ENOXAPARIN 60 MG/0.6 ML SYRINGE SUBCUT SCH (12:44)
[2019-02-24] MEDS: SODIUM CHLORIDE 0.45% 1,000 ML IV SCH (14:09)
[2019-02-24] MEDS: ASPIRIN EC 81 MG TABLET PO SCH (14:18)
[2019-02-24] MEDS ORDERED: MELATONIN 3 MG TABLET PO SCH (21:00)
[2019-02-24] MEDS: POTASSIUM CHLORIDE 20 MEQ TABLET PO SCH (21:48)
[2019-02-25] MEDS: ENOXAPARIN 60 MG/0.6 ML SYRINGE SUBCUT SCH (01:15)
[2019-02-25] MEDS: SODIUM CHLORIDE 0.9% 1,000 ML IV SCH (01:29)
[2019-02-25] MEDS: SODIUM CHLORIDE 0.45% 1,000 ML IV SCH (05:05)
[2019-02-25 05:44] LABS: Basophils % 0.5 % (0.0-0.8); Eosinophils # 0.3 10*3/uL (0.0-0.87); Eosinophils % 5.5 % (0.00-10.9); Hemoglobin 10.1 GM/DL (12.0-16.0); Immature Granulocytes % 0.2 %; Immature Granulocytes Absolute 0.01 #; Lymphocytes # 1.2 10*3/uL (1.4-4.0); Lymphocytes % 21.1 % (21.3-54.2); Mean Corpuscular HGB Conc 30.6 GM/DL (32-36); Mean Corpuscular Volume 86.2 FL (87-102); Mean Platelet Volume 11.2 FL (9.6-12.0); Monocytes % 8.5 % (1.7-12.7); Neutrophils % 64.2 % (38.7-73.9); Platelet Count 212 T/CUMM (130-400); Red Blood Count 3.83 MC/CUMM (3.8-5.5); Red Cell Distribution Width 14.6 % (9.3-17.3); White Blood Count 5.8 T/CUMM (4-12)
[2019-02-25 06:17] LABS: Calcium 7.6 MG/DL (8.5-10.1); Osmolality,Calculated 277.5 MOS/KG (273-304)
[2019-02-25] MEDS ORDERED: glyBURIDE 2.5 MG TABLET PO SCH (08:00)
[2019-02-25] MEDS ORDERED: DILTIAZEM CD 180 MG CAPSULE PO SCH (09:00)
[2019-02-25] MEDS ORDERED: CHOLECALCIFEROL 1,000 UNIT TABLET PO SCH (09:00)
[2019-02-25] MEDS: ASPIRIN EC 81 MG TABLET PO SCH (09:22)
[2019-02-25] MEDS: cefTRIAXone 2,000 MG in SYRINGE 1 EACH IV SCH (09:23)
[2019-02-25] MEDS: POTASSIUM CHLORIDE 20 MEQ TABLET PO PRN ×2 (09:23→11:55)
[2019-02-25] MEDS: POTASSIUM CHLORIDE 20 MEQ TABLET PO SCH (09:23)
[2019-02-25] MEDS: PANTOPRAZOLE 40 MG TABLET PO SCH (09:23)
[2019-02-25] MEDS: MAGNESIUM SULF RIDER 4 GM in PREMIX 1 EACH IV PRN (09:24)
[2019-02-25] MEDS: INSULIN REGULAR 100 UNIT/ML SUBCUT SCH (10:06)
[2019-02-25 11:30] VITALS: BP 153/68
[2019-02-26] MEDS ORDERED: MAGNESIUM CHLORIDE 64 MG TABLET PO SCH (09:00)
== END 2019-02-25 12:35 | disposition home or self-care (01) | DRG 690 ==
LOC: N.ED 20:15 → N.EDINP 23:22 → N.TELEN 02-24 00:12
PROVIDERS: ADMIT Hospitalist; ATTEND Hospitalist

== ENCOUNTER 2020-08-15 19:13 | Inpatient (IN) ==
[2020-08-15] MEDS ORDERED: GLUCAGON 1 MG VIAL IM PRN (21:51)
[2020-08-15] MEDS ORDERED: ACETAMINOPHEN 325 MG TABLET PO PRN (21:51)
[2020-08-15] MEDS ORDERED: ONDANSETRON 4 MG/2 ML VIAL IV PRN (21:51)
[2020-08-15] MEDS ORDERED: PROMETHAZINE 25 MG/1 ML VIAL IM PRN (21:51)
[2020-08-15] MEDS ORDERED: DEXTROSE 50% 25 GM/50 ML VIAL IV PRN (21:51)
[2020-08-15] MEDS ORDERED: NICOTINE 21 MG/24 HR PATCH TRANSDERM PRN (21:51)
[2020-08-15] MEDS ORDERED: MORPHINE 4 MG/1 ML VIAL IV PRN (21:51)
[2020-08-15] MEDS ORDERED: hydrALAZINE 20 MG/1 ML VIAL IV PRN (21:51)
[2020-08-15] MEDS ORDERED: ALBUTEROL 2.5 MG/3 ML NEB RESP TX PRN (21:51)
[2020-08-15 21:57] LABS: Basophils % 0.3 % (0.0-0.8); Immature Granulocytes % 0.6 %; Immature Granulocytes Absolute 0.09 #; Lymphocytes # 1.4 10*3/uL (1.4-4.0); Lymphocytes % 9.7 % (21.3-54.2); Mean Corpuscular HGB Conc 31.7 GM/DL (32-36); Mean Corpuscular Volume 86.5 FL (87-102); Mean Platelet Volume 10.3 FL (9.6-12.0); Monocytes % 2.5 % (1.7-12.7); Neutrophils % 86.9 % (38.7-73.9); Platelet Count 298 T/CUMM (130-400); Red Blood Count 4.74 MC/CUMM (3.8-5.5); White Blood Count 14.7 T/CUMM (4-12)
[2020-08-15 22:18] LABS: Bilirubin,Urine Negative (Negative); Blood, Urine Moderate mg/dL (Negative); Glucose,Urine (UA) Negative (Negative); Ketones,Urine Negative (Negative); Nitrite,Urine Negative (Negative); Protein,Urine 100 MG/DL; RBC,Urine 25 /HPF (0-4); Squamous Epithelial Cell,Urine Occasional /HPF (0-10); Urine Appearance CLEAR (Clear); Urine Color Yellow (Yellow); Urine Urobilinogen < 2.0 EU/DL (0.2-1.0); WBC,Urine 24 /HPF (0-6)
[2020-08-15 22:19] LABS: Urine Specific Gravity 1.035 (1.001-1.035)
[2020-08-15] MEDS: DEXT 5% NACL 0.9% KCL 40 MEQ 40 MEQ/1,000 ML BAG IV SCH (22:26)
[2020-08-15 22:29] LABS: Albumin 3.5 G/DL (3.4-5.0); Bilirubin,Total 0.6 MG/DL (0.2-1.0); Calcium 9.4 MG/DL (8.5-10.1); Osmolality,Calculated 279.7 MOS/KG (273-304); Potassium 4.2 MMOL/L (3.5-5.1); Total Protein 7.3 G/DL (5.0-7.5)
[2020-08-15] MEDS: cefTRIAXone 1,000 MG in SYRINGE 1 EACH IV SCH (23:16)
[2020-08-15] MEDS: metroNIDAZOLE INJ 500 MG in PREMIX 1 EACH IV SCH (23:19)
[2020-08-16 03:44] LABS: Basophils % 0.2 % (0.0-0.8); Hematocrit 34.9 VOL% (35.7-47.0); Hemoglobin 11.6 GM/DL (12.0-16.0); Immature Granulocytes % 0.5 %; Immature Granulocytes Absolute 0.09 #; Lymphocytes # 1.4 10*3/uL (1.4-4.0); Lymphocytes % 8.2 % (21.3-54.2); Mean Corpuscular HGB Conc 33.2 GM/DL (32-36); Mean Corpuscular Volume 84.7 FL (87-102); Mean Platelet Volume 10.4 FL (9.6-12.0); Monocytes % 2.3 % (1.7-12.7); Neutrophils % 88.8 % (38.7-73.9); Platelet Count 242 T/CUMM (130-400); Red Blood Count 4.12 MC/CUMM (3.8-5.5); Red Cell Distribution Width 16.9 % (9.3-17.3)
[2020-08-16 04:09] LABS: Calcium 8.4 MG/DL (8.5-10.1); Osmolality,Calculated 288.1 MOS/KG (273-304); Potassium 3.7 MMOL/L (3.5-5.1)
[2020-08-16] MEDS: metroNIDAZOLE INJ 500 MG in PREMIX 1 EACH IV SCH ×3 (08:56→23:37)
[2020-08-16] MEDS: PANTOPRAZOLE 40 MG VIAL IV SCH (08:56)
[2020-08-16] MEDS: DEXT 5% NACL 0.9% KCL 40 MEQ 40 MEQ/1,000 ML BAG IV SCH (15:09)
[2020-08-16] MEDS: cefTRIAXone 1,000 MG in SYRINGE 1 EACH IV SCH (22:08)
[2020-08-17] MEDS: DEXT 5% NACL 0.9% KCL 40 MEQ 40 MEQ/1,000 ML BAG IV SCH (01:56)
[2020-08-17 03:54] LABS: Immature Granulocytes % 0.5 %; Immature Granulocytes Absolute 0.04 #
[2020-08-17 04:21] LABS: Calcium 8.1 MG/DL (8.5-10.1); Osmolality,Calculated 275.5 MOS/KG (273-304); Potassium 3.9 MMOL/L (3.5-5.1)
[2020-08-17 04:28] LABS: Basophils # 0.1 10*3/uL (0.0-0.2); Basophils % 0.6 % (0.0-0.8); Hematocrit 29.9 VOL% (35.7-47.0); Lymphocytes # 1.6 10*3/uL (1.4-4.0); Lymphocytes % 18.9 % (21.3-54.2); Mean Corpuscular HGB Conc 31.4 GM/DL (32-36); Mean Corpuscular Volume 88.2 FL (87-102); Mean Platelet Volume 11.1 FL (9.6-12.0); Monocytes % 2.8 % (1.7-12.7); Neutrophils % 77.2 % (38.7-73.9); Red Blood Count 3.39 MC/CUMM (3.8-5.5); Red Cell Distribution Width 16.6 % (9.3-17.3)
[2020-08-17 04:34] LABS: Hemoglobin 9.4 GM/DL (12.0-16.0); Platelet Count 186 T/CUMM (130-400); White Blood Count 8.4 T/CUMM (4-12)
[2020-08-17 04:50] LABS: Lymphocytes 16 % (20-55); Platelet Estimate Adequate; Segmented Neutrophils 83 % (50-85); Total Cells Counted 100
[2020-08-17 04:51] LABS: Hypochromasia 1+; Microcytosis 1+
[2020-08-17] MEDS: PANTOPRAZOLE 40 MG VIAL IV SCH (08:11)
[2020-08-17] MEDS: metroNIDAZOLE INJ 500 MG in PREMIX 1 EACH IV SCH (08:13)
[2020-08-17 11:33] VITALS: BP 151/65
== END 2020-08-17 11:45 | disposition home or self-care (01) | DRG 389 ==
LOC: N.4E 21:05 → SUATTDRO 21:05
PROVIDERS: ADMIT Internal Medicine; ATTEND Internal Medicine